=== PATIENT | male | born 1955 | race Hispanic/Latino ===

== ENCOUNTER 2018-01-11 14:19 | Emergency (ER) | payer MEDICAID ==
[2018-01-11 15:29] LABS: BASO % 0.2 % (0.0-1.0); EOS # 0.1 10^3/uL (0.0-0.50); EOS % 1.4 % (0.0-3.0); HEMATOCRIT 38.5 % (42.0-52.0); HEMOGLOBIN 12.6 g/dl (13.5-17.5); IMMATURE GRANULOCYTE % 0.5 % (0-3.0); LYMPH # 2.1 10^3/uL (1.5-4.5); LYMPH % 24.4 % (24.0-44.0); MEAN CORPUSCULAR HEMOGLOBIN 29.9 pg (27.0-33.0); MEAN CORPUSCULAR HGB CONC 32.7 g/dl (32.0-36.5); MEAN CORPUSCULAR VOLUME 91.2 fl (80.0-96.0); MONO # 0.5 10^3/uL (0.0-0.8); NEUTROPHILS # 5.7 10^3/uL (1.8-7.7); NEUTROPHILS % 67.5 % (36.0-66.0); PLATELET COUNT, AUTOMATED 217 10^3/uL (150-450); RED BLOOD COUNT 4.22 10^6/uL (4.30-6.10); RED CELL DISTRIBUTION WIDTH 13.3 % (11.5-14.5); WHITE BLOOD COUNT 8.4 10^3/uL (4.0-10.0)
[2018-01-11 15:48] LABS: ALBUMIN 3.5 GM/DL (3.2-5.2); ALBUMIN/GLOBULIN RATIO 1.17 (1.00-1.93); ALKALINE PHOSPHATASE 78 U/L (45-117); ALT/SGPT 22 U/L (12-78); ANION GAP 3 MEQ/L (8-16); AST/SGOT 10 U/L (7-37); BILIRUBIN,DIRECT 0.1 MG/DL (0.0-0.2); BILIRUBIN,TOTAL 0.3 MG/DL (0.2-1.0); BLOOD UREA NITROGEN 14 MG/DL (7-18); C REACTIVE PROTEIN QUANTITATIV < 0.30 MG/DL (0.00-0.30); CALCIUM LEVEL 8.6 MG/DL (8.8-10.2); CARBON DIOXIDE LEVEL 29 MEQ/L (21-32); CHLORIDE LEVEL 111 MEQ/L (98-107); CREATININE FOR GFR 0.76 MG/DL (0.70-1.30); GLOMERULAR FILTRATION RATE > 60.0 (>49); GLUCOSE, FASTING 121 MG/DL (70-100); POTASSIUM SERUM 4.1 MEQ/L (3.5-5.1); SODIUM LEVEL 143 MEQ/L (136-145); TOTAL PROTEIN 6.5 GM/DL (6.4-8.2)
[2018-01-11 15:49] LABS: D-DIMER QUANT < 270.0 ng/ml (<500)
[2018-01-11 16:05] LABS: ERYTHROCYTE SEDIMENTATION RATE 1 mm/hr (0-20)
== END 2018-01-11 16:21 | disposition home or self-care (01) ==
LOC: M ED 14:19
DX: M19.012 Primary osteoarthritis, left shoulder (principal); I10 Essential (primary) hypertension; J44.9 Chronic obstructive pulmonary disease, unspecified; H40.9 Unspecified glaucoma; Z79.899 Other long term (current) drug therapy; Z88.8 Allergy status to other drugs, medicaments and biological substances; F17.210 Nicotine dependence, cigarettes, uncomplicated
CPT/HCPCS: 73030

== ENCOUNTER → 2018-03-08 | Outpatient (REF) | payer MEDICAID ==
[2018-03-08 13:11] LABS: AMPHETAMINES URINE REFLEX NEGATIVE (NEGATIVE); BARBITURATES URINE REFLEX NEGATIVE (NEGATIVE); BENZODIAZEPINES URINE REFLEX NEGATIVE (NEGATIVE); CANNABINOIDS URINE REFLEX NEGATIVE (NEGATIVE); COCAINE METABOLITE URINE REFLE NEGATIVE (NEGATIVE); METHADONE URINE REFLEX NEGATIVE (NEGATIVE); OPIATES URINE REFLEX NEGATIVE (NEGATIVE); PHENCYCLIDINE URINE REFLEX NEGATIVE (NEGATIVE)
== END ==
LOC: M LAB REF 12:00
DX: M50.30 Other cervical disc degeneration, unspecified cervical region (principal)
CPT/HCPCS: 80307

== ENCOUNTER → 2018-03-14 | Outpatient (REF) | payer OTHER, MEDICAID ==
[2018-03-14 12:34] LABS: BASO % 0.4 % (0.0-1.0); EOS # 0.1 10^3/uL (0.0-0.50); EOS % 1.2 % (0.0-3.0); HEMATOCRIT 40.5 % (42.0-52.0); IMMATURE GRANULOCYTE % 0.4 % (0-3.0); LYMPH # 1.7 10^3/uL (1.5-4.5); LYMPH % 20.9 % (24.0-44.0); MEAN CORPUSCULAR HEMOGLOBIN 29.4 pg (27.0-33.0); MEAN CORPUSCULAR HGB CONC 32.1 g/dl (32.0-36.5); MEAN CORPUSCULAR VOLUME 91.6 fl (80.0-96.0); MONO # 0.5 10^3/uL (0.0-0.8); MONO % 6.5 % (0.0-5.0); NEUTROPHILS # 5.7 10^3/uL (1.8-7.7); NEUTROPHILS % 70.6 % (36.0-66.0); PLATELET COUNT, AUTOMATED 234 10^3/uL (150-450); RED BLOOD COUNT 4.42 10^6/uL (4.30-6.10); RED CELL DISTRIBUTION WIDTH 12.9 % (11.5-14.5); WHITE BLOOD COUNT 8.1 10^3/uL (4.0-10.0)
[2018-03-14 13:16] LABS: ALBUMIN 3.6 GM/DL (3.2-5.2); ALBUMIN/GLOBULIN RATIO 1.29 (1.00-1.93); ALKALINE PHOSPHATASE 75 U/L (45-117); ALT/SGPT 23 U/L (12-78); ANION GAP 7 MEQ/L (8-16); AST/SGOT 13 U/L (7-37); BILIRUBIN,TOTAL 0.5 MG/DL (0.2-1.0); BLOOD UREA NITROGEN 11 MG/DL (7-18); CALCIUM LEVEL 8.6 MG/DL (8.8-10.2); CARBON DIOXIDE LEVEL 27 MEQ/L (21-32); CHLORIDE LEVEL 108 MEQ/L (98-107); CHOLESTEROL LEVEL 144 MG/DL (<200); CREATININE FOR GFR 0.78 MG/DL (0.70-1.30); FOLATE 13.8 NG/ML; GLOMERULAR FILTRATION RATE > 60.0 (>49); GLUCOSE, FASTING 87 MG/DL (70-100); HDL CHOLESTEROL 48 MG/DL (>40); IRON (FE) 86 UG/DL (65-175); LDL CHOLESTEROL 83 MG/DL (<100); NON-HDL-C 96 MG/DL; POTASSIUM SERUM 4.1 MEQ/L (3.5-5.1); SODIUM LEVEL 142 MEQ/L (136-145); THYROID STIMULATING HORMONE 0.707 uIU/ML (0.358-3.740); TOTAL PROTEIN 6.4 GM/DL (6.4-8.2); TRIGLYCERIDES LEVEL 66 MG/DL (<150)
== END ==
LOC: M LAB REF 12:16
DX: Z00.00 Encounter for general adult medical examination without abnormal findings (principal); D64.9 Anemia, unspecified

== ENCOUNTER → 2018-03-30 | Outpatient (CLI) | payer OTHER ==
[~2018-03-30] MED LIST: PROHANCE 279.3MG/ML 15ML VIAL (A9576) As Ordered
== END ==
LOC: M RAD 09:43
DX: M50.21 Other cervical disc displacement, high cervical region (principal); M50.221 Other cervical disc displacement at C4-C5 level; M50.222 Other cervical disc displacement at C5-C6 level; M50.223 Other cervical disc displacement at C6-C7 level; M53.88 Other specified dorsopathies, sacral and sacrococcygeal region; M47.22 Other spondylosis with radiculopathy, cervical region
CPT/HCPCS: A9576

== ENCOUNTER → 2018-05-18 | Outpatient (CLI) | payer OTHER ==
[~2018-05-18] MED LIST changes: +AMLO5TAB6 PO; +DICL75TA PO; +EYE0.0259 OP; +FLUO25OPD OU; +FLUT22IN INH; +LISI10TA2 PO; -PROHANCE 279.3MG/ML 15ML VIAL (A9576) As Ordered; +SPIR1CAP INH; +TRAM50TA2 PO; +VENTAER INH; +VITA-122 PO; +VITA1TAB27 PO; +[UNRECOGNIZED DRUG - REMARK]
[2018-05-18 14:38] LABS: HEMATOCRIT 39.7 % (42.0-52.0); MEAN CORPUSCULAR HEMOGLOBIN 29.8 pg (27.0-33.0); MEAN CORPUSCULAR HGB CONC 32.7 g/dl (32.0-36.5); MEAN CORPUSCULAR VOLUME 91.1 fl (80.0-96.0); PLATELET COUNT, AUTOMATED 223 10^3/uL (150-450); RED BLOOD COUNT 4.36 10^6/uL (4.30-6.10); WHITE BLOOD COUNT 11.7 10^3/uL (4.0-10.0)
[2018-05-18 14:49] LABS: INR 1.09; PROTHROMBIN TIME 14.3 SECONDS (12.1-14.4)
[2018-05-18 15:07] LABS: ALBUMIN 3.7 GM/DL (3.2-5.2); ALT/SGPT 24 U/L (12-78); BILIRUBIN,TOTAL 0.4 MG/DL (0.2-1.0); BLOOD UREA NITROGEN 12 MG/DL (7-18); CARBON DIOXIDE LEVEL 28 MEQ/L (21-32); CHLORIDE LEVEL 107 MEQ/L (98-107); CREATININE FOR GFR 0.73 MG/DL (0.70-1.30); GLOMERULAR FILTRATION RATE > 60.0 (>49); GLUCOSE, FASTING 82 MG/DL (70-100); POTASSIUM SERUM 4.6 MEQ/L (3.5-5.1); SODIUM LEVEL 141 MEQ/L (136-145); TOTAL PROTEIN 6.5 GM/DL (6.4-8.2)
[2018-05-18 15:22] LABS: ERYTHROCYTE SEDIMENTATION RATE 6 mm/hr (0-20)
--- NOTE | 2018-05-18 16:35 | REP ---
Chest two views HISTORY: Preop Comparison: None The lungs are hyperinflated. The lungs are clear. The heart is normal in size. The pulmonary vasculature is normal in appearance. Degenerative change is present in the thoracic spine. IMPRESSION: No acute disease. Electronically Signed by Carlin Lemons MD 05/18/2018 04:26 P
--- NOTE | 2018-05-18 21:43 | ECGEPIP ---
Stationary ECG Study [facility] Test Date: 2018-05-18 Pat Name: NASRA PINA Department: Room: - Gender: M Partition Notcher: : 1955 Requested By: Theron Hobbs Order Number: [id number] Reading MD: Ji Ruffin Measurements Intervals [place] Rate: 68 P: 73 HI: 150 QRS: 71 QRSD: 87 T: 56 QT: 360 QTc: 384 Interpretive Statements SINUS RHYTHM Early repolarization. No prior ECG available for comparison at the time of interpretation. Electronically Signed On 05-18-2018 21:43:37 EST by Ji Ruffin
== END ==
LOC: M LAB 13:34
PROVIDERS: ATTEND Family Medicine Addiction Medicine
DX: Z01.818 Encounter for other preprocedural examination (principal); M17.11 Unilateral primary osteoarthritis, right knee

== ENCOUNTER → 2018-06-01 | Outpatient (CLI) | payer OTHER ==
[2018-06-01 09:58] LABS: HEMOGLOBIN 12.6 g/dl (13.5-17.5); MEAN CORPUSCULAR HGB CONC 32.3 g/dl (32.0-36.5); MEAN CORPUSCULAR VOLUME 89.9 fl (80.0-96.0); PLATELET COUNT, AUTOMATED 221 10^3/uL (150-450); RED BLOOD COUNT 4.34 10^6/uL (4.30-6.10); WHITE BLOOD COUNT 11.8 10^3/uL (4.0-10.0)
[2018-06-01 10:07] LABS: INR 1.18; PROTHROMBIN TIME 15.1 SECONDS (12.1-14.4)
[2018-06-01 10:29] LABS: ERYTHROCYTE SEDIMENTATION RATE 3 mm/hr (0-20)
[2018-06-01 10:32] LABS: ALBUMIN 3.5 GM/DL (3.2-5.2); ALT/SGPT 26 U/L (12-78); BILIRUBIN,TOTAL 0.5 MG/DL (0.2-1.0); BLOOD UREA NITROGEN 14 MG/DL (7-18); CALCIUM LEVEL 8.8 MG/DL (8.8-10.2); CARBON DIOXIDE LEVEL 28 MEQ/L (21-32); CHLORIDE LEVEL 107 MEQ/L (98-107); CREATININE FOR GFR 0.78 MG/DL (0.70-1.30); GLOMERULAR FILTRATION RATE > 60.0 (>49); GLUCOSE, FASTING 86 MG/DL (70-100); POTASSIUM SERUM 4.1 MEQ/L (3.5-5.1); SODIUM LEVEL 143 MEQ/L (136-145); TOTAL PROTEIN 6.5 GM/DL (6.4-8.2)
== END ==
LOC: M LAB 09:24
PROVIDERS: ATTEND Orthopaedic Surgery
DX: Z01.818 Encounter for other preprocedural examination (principal); M17.11 Unilateral primary osteoarthritis, right knee

== ENCOUNTER → 2018-06-07 | Outpatient (CLI) | payer OTHER ==
--- NOTE | 2018-06-12 10:14 | SLEEPHOME ---
DATE OF PROCEDURE: 06/07/2018 ORDERED BY: Rosario Reyes. Diagnostic home sleep testing was performed due to concern for the obstructive sleep apnea syndrome in this patient with a history of snoring and nonrestorative sleep. For testing, a nocturnal T3 respiratory monitoring device was used. Continuous record was made of pulse, oxygen saturation, airflow, chest and abdominal strain, and body position. 9 hours and 59 minutes of data were reviewed. Of these, 6 hours and 17 minutes were marked as time in bed. During the interval marked time in bed, there were 149 respiratory events identified of 10 seconds in duration or greater for respiratory event index of 23.7. The events primarily obstructive. Baseline pulse rate 64 beats per minute. Pulse rate ranged from 44-96. Saturation at baseline were 97%. Saturations fell as low as 59%. Testing was performed in both the supine and non-supine positions. IMPRESSION: Abnormal home sleep testing with repetitive respiratory events and oxygen desaturation to 59% with a respiratory event index of 23.7 is consistent with the obstructive sleep apnea syndrome. RECOMMENDATIONS: The patient will be encouraged to undergo formal sleep evaluation and in laboratory pressure titration.
== END ==
LOC: M SLEEP HO 10:27
PROVIDERS: ATTEND Nurse Practitioner Family
DX: G47.30 Sleep apnea, unspecified (principal); R06.83 Snoring

== ENCOUNTER 2018-08-07 10:08 | Inpatient (IN) | payer OTHER ==
[~2018-08-07] VITALS: Ht 172.7 cm; Wt 63.6 kg
[2018-08-07] MEDS: LISINOPRIL 10 MG TAB PO SCH (09:00)
[~2018-08-07 10:08] MED LIST changes: +ACETAMINOPHEN 500 MG TAB PO ONE; +ACYC400T PO; +ARNU1INH3 INH; +BREO1INH INH; +COMBAER6 INH; +DORZ2SOL5 OP; -EYE0.0259 OP; +EYE0.0259 OU; +FLON1SPR; +FLUO25OPD OS; -FLUO25OPD OU; +FLUTISP; +LR 1,000 ML IV ONE; +RANI1SYP PO; +TIMO25OPD OU; +XALA0.007 OU; +[UNRECOGNIZED DRUG - CODE] OU; +[UNRECOGNIZED DRUG - OTHER] OU
[2018-08-07] MEDS ORDERED: TRANEXAMIC ACID 100 MG/ML 10ML VIAL As Ordered ONE (11:10)
[2018-08-07] MEDS ORDERED: BUPIVACAINE HCL 0.25% 30 ML VIAL As Ordered ONE (11:11)
[2018-08-07] MEDS ORDERED: EPINEPHrine INJ 1 MG/ML 1ML AMP As Ordered ONE (11:11)
[2018-08-07] MEDS ORDERED: ceFAZolin 1GM INJ (J0690 PER 500MG) As Ordered ONE (11:11)
[2018-08-07] MEDS ORDERED: BUPIVACAINE LIPOSOME/PF 1.3% 20ML VIAL (13.3MG/ML)(EXPAREL)(C9290 PER1MG) As Ordered ONE (11:11)
[2018-08-07] MEDS ORDERED: MIDAZOLAM INJ 2 MG/2 ML VIAL (J2250) As Ordered ONE ×2 (12:05→13:32)
[2018-08-07] MEDS ORDERED: fentaNYL 100 MCG/2 ML INJECTION (J3010) As Ordered ONE ×2 (12:05→13:32)
[2018-08-07] MEDS: fentaNYL 100 MCG/2 ML INJECTION (J3010) IV SCH ×2 (12:51→12:53)
[2018-08-07] MEDS: MIDAZOLAM INJ 2 MG/2 ML VIAL (J2250) IV SCH ×2 (12:51→12:54)
[2018-08-07] MEDS ORDERED: PROPOFOL 200 MG/20 ML VIAL As Ordered ONE ×2 (13:32→14:59)
[2018-08-07] MEDS ORDERED: BUPIVACAINE/DEXTROSE 0.75% 2 ML AMP As Ordered ONE (13:32)
[2018-08-07] MEDS ORDERED: LIDOCAINE 1% MDV 20ML VIAL ONE (14:34)
[2018-08-07] MEDS ORDERED: ROPIvacaine 0.5% 30 ML INJECTION (J2795 PER 1MG) ONE (14:34)
[2018-08-07] MEDS ORDERED: dexameTHASONE 10 MG/1 ML VIAL PRES.FREE (J1100) ONE (14:34)
[2018-08-07] MEDS ORDERED: LR 1,000 ML IV SCH (15:45)
[2018-08-07] MEDS ORDERED: ONDANSETRON 4MG/2ML VIAL (J2405) IV PRN (15:45)
[2018-08-07] MEDS ORDERED: ACETAMINOPHEN TAB 650MG DOSE (2X325MG) PO PRN (15:45)
[2018-08-07] MEDS ORDERED: fentaNYL 100 MCG/2 ML INJECTION (J3010) IV PRN (15:45)
[2018-08-07] MEDS: LR 1,000 ML IV SCH (15:45)
[2018-08-07] MEDS ORDERED: PERCOCET 5MG/325MG TAB PO PRN (15:45)
[2018-08-07] MEDS ORDERED: FLEET ENEMA PR PRN (15:45)
--- NOTE | 2018-08-07 15:57 | REP ---
Clinical: Status post knee replacement. Technique AP and cross-table lateral views. Findings: The patient is status post right knee replacement with normal positioning and appearance to the femoral and tibial components. Overlying postsurgical changes appreciated. Impression: Status post right knee replacement. Electronically Signed by Adrian Red MD 08/07/2018 03:48 P
[2018-08-07] MEDS ORDERED: HYDROMORPHONE HCL 0.5 MG/ 0.5 ML SYRINGE (J1170 PER 1) IV PRN (16:00)
[2018-08-07 16:45] VITALS: BP 159/93
[2018-08-07 17:15] VITALS: BP 144/72
[2018-08-07 18:15] VITALS: BP 146/84
[2018-08-07] MEDS: HYDROMORPHONE HCL 0.5 MG/ 0.5 ML SYRINGE (J1170 PER 1) IV PRN ×2 (18:35→23:36)
[2018-08-07 18:44] LABS: INR 1.16
[2018-08-07] MEDS ORDERED: traMADol 50 MG TAB PO PRN (19:00)
[2018-08-07] MEDS ORDERED: ALBUTEROL 90 MCG/ACT 8GM HFA INHALER INH PRN (19:00)
[2018-08-07 19:15] VITALS: BP 145/88
[2018-08-07] MEDS ORDERED: TIMO0.5S29 OU (19:39)
[2018-08-07] MEDS ORDERED: TRUS1SOL OU (19:39)
[2018-08-07] MEDS ORDERED: RANI150T PO (19:39)
[2018-08-07] MEDS ORDERED: PROL0.072 OS (19:39)
[2018-08-07] MEDS ORDERED: INCR1INH INH (19:41)
[2018-08-07] MEDS: FLUTICASONE HFA 220 MCG 12 GM INHALER (FLOVENT) INH SCH (20:00)
--- NOTE | 2018-08-07 20:43 | CR ---
DATE OF CONSULTATION: 08/07/2018 This is a 63-year-old male with a past medical history of hypertension, asthma, gastroesophageal reflux disease (GERD), history of chronic obstructive pulmonary disease (COPD), non-oxygen (non-O2) dependent, presents to this hospitalization for right total knee replacement secondary to osteoarthritis, successfully done today by Dr. Sun. REASON FOR MEDICAL CONSULTATION: Postoperative medical management. The patient is doing well at this time. His pain scale is 0 out of 10 and denies any abdominal pain, nausea, vomiting, chest pain, or shortness of breath. PAST MEDICAL HISTORY: Asthma. Hypertension. GERD. Non-oxygen dependent COPD. Glaucoma. Osteoarthritis. PAST SURGICAL HISTORY: Cataract removal. Hemorrhoidectomy. ALLERGIES: No known drug allergies. FAMILY HISTORY: Noncontributory. SOCIAL HISTORY: Patient still is an active smoker, smokes approximately three cigarettes a day but formerly was a fce-sxnd-c-day smoker for many years. Denies alcohol or illicit drugs. MEDICATIONS: He takes at home are as follows: - acyclovir 400 mg orally three times a day - albuterol as needed - amlodipine 5 mg orally daily - Arnuity Ellipta 200 mcg inhaled daily - cholecalciferol 50,000 units orally weekly - dorzolamide one drop to both eyes three times a day - fluorometholone one drop both eyes four times a day - fluticasone two puffs inhaled twice a day - latanoprost one drop both eyes nightly - lisinopril 10 mg orally daily - hydrochlorothiazide 12.5 mg orally daily - ranitidine 150 mg orally twice daily - Timolol one drop to both eyes daily - tiotropium one inhalation daily - tramadol 50 mg orally every 6 hours as needed REVIEW OF SYSTEMS: Negative all ten major systems except what has been mentioned in the history of the present illness. Vital Signs: Blood pressure 159/99, heart rate is 58, regular, respiratory rate 16, temperature is 97.3, oxygen (O2) saturation 100% on room air. Head is atraumatic, normocephalic. Neck supple. No jugular venous distention (JVD). Lungs are clear to auscultation. S1, S2 audible, No murmurs appreciated. Abdomen: Soft, positive bowel sounds. No pedal edema. Neurologic Examination: Patient awake, alert, oriented times three. LABORATORY: There are no labs to review. IMPRESSION: 1. Right total knee replacement. 2. Asthma. 3. Hypertension. PLAN: The patient at this time is medically stable. There is no recommendations at this time. The patient is just to continue his current preadmission medications and will continue following alongside orthopedics. CARLOS
[2018-08-07] MEDS ORDERED: IPRATROPIUM 0.5MG/ALBUTEROL 2.5MG INH SOL UD 3ML (DUONEB)(J7620) INH SCH (21:00)
[2018-08-07] MEDS: ACYCLOVIR 200 MG CAPSULE PO SCH ×2 (21:00→21:03)
[2018-08-07] MEDS: LATANOPROST 0.005% OPHTH SOLN 2.5 ML OU SCH ×2 (21:00→23:36)
[2018-08-07] MEDS: raNITIdine SYRUP 150 MG/10 ML UDC PO SCH (21:02)
[2018-08-07] MEDS: ONDANSETRON 4 MG TAB (S0181) PO PRN (21:02)
[2018-08-07] MEDS: amLODIPine 5 MG TAB PO SCH (21:03)
[2018-08-07] MEDS: hydroCHLOROthiazide 12.5 MG CAPSULE PO SCH (21:03)
[2018-08-07 22:00] VITALS: BP 160/86
[2018-08-08] MEDS: LR 1,000 ML IV SCH (04:15)
[2018-08-08] MEDS: ONDANSETRON 4 MG TAB (S0181) PO PRN ×2 (04:52→09:53)
[2018-08-08] MEDS: HYDROMORPHONE HCL 0.5 MG/ 0.5 ML SYRINGE (J1170 PER 1) IV PRN (05:07)
[2018-08-08 06:00] VITALS: BP 149/82
[2018-08-08] MEDS: ACETAMINOPHEN 500 MG TAB PO SCH ×2 (06:00→06:54)
[2018-08-08] MEDS ORDERED: traMADol 50 MG TAB PO PRN ×2 (06:15)
[2018-08-08] MEDS ORDERED: ONDANSETRON 4 MG TAB (S0181) PO PRN (06:15)
[2018-08-08] MEDS: FLUTICASONE HFA 220 MCG 12 GM INHALER (FLOVENT) INH SCH (07:45)
[2018-08-08] MEDS ORDERED: TRAM50TA2 PO (07:54)
[2018-08-08] MEDS ORDERED: XARE10TA PO (07:54)
[2018-08-08] MEDS ORDERED: ACET-683 PO (07:59)
[2018-08-08] MEDS ORDERED: TIOTROPIUM INHALER/CAPSULE (SPIRIVA) INH SCH (08:00)
[2018-08-08] MEDS ORDERED: FLOM0.4C39 PO (08:07)
[2018-08-08 08:28] LABS: HEMATOCRIT 35.6 % (42.0-52.0); HEMOGLOBIN 11.6 g/dl (13.5-17.5); MEAN CORPUSCULAR HEMOGLOBIN 29.1 pg (27.0-33.0); MEAN CORPUSCULAR HGB CONC 32.6 g/dl (32.0-36.5); MEAN CORPUSCULAR VOLUME 89.4 fl (80.0-96.0); PLATELET COUNT, AUTOMATED 187 10^3/uL (150-450); RED BLOOD COUNT 3.98 10^6/uL (4.30-6.10)
[2018-08-08 08:58] LABS: BLOOD UREA NITROGEN 11 MG/DL (7-18); CALCIUM LEVEL 8.7 MG/DL (8.8-10.2); CARBON DIOXIDE LEVEL 26 MEQ/L (21-32); CHLORIDE LEVEL 102 MEQ/L (98-107); GLOMERULAR FILTRATION RATE > 60.0 (>49); GLUCOSE, FASTING 150 MG/DL (70-100); POTASSIUM SERUM 3.9 MEQ/L (3.5-5.1); SODIUM LEVEL 135 MEQ/L (136-145)
[2018-08-08] MEDS ORDERED: TIMOLOL MALEATE 0.5% OPHTH SOLN 5 ML OU SCH (09:00)
[2018-08-08] MEDS ORDERED: MIRALAX *UNIT DOSE* 17GM PACKET PO SCH (09:00)
[2018-08-08] MEDS ORDERED: FLUTICASONE PROP 0.05% NASAL SPRAY 16 GM (FLONASE) SCH (09:00)
[2018-08-08] MEDS ORDERED: TAMSULOSIN 0.4 MG CAP PO ONE (09:00)
[2018-08-08] MEDS ORDERED: MOM 30ML SUSPENSION UDC PO SCH (09:00)
[2018-08-08] MEDS: hydroCHLOROthiazide 12.5 MG CAPSULE PO SCH (09:36)
[2018-08-08 09:38] VITALS: BP 153/75
[2018-08-08] MEDS: raNITIdine SYRUP 150 MG/10 ML UDC PO SCH (09:38)
[2018-08-08] MEDS: amLODIPine 5 MG TAB PO SCH (09:38)
[2018-08-08] MEDS: ACYCLOVIR 200 MG CAPSULE PO SCH (09:40)
[2018-08-08] MEDS: LISINOPRIL 10 MG TAB PO SCH (09:40)
--- NOTE | 2018-08-08 10:24 | RO ---
DATE OF PROCEDURE: 08/07/2018 PREPROCEDURE DIAGNOSIS: Right knee degenerative arthritis. POSTPROCEDURE DIAGNOSIS: Right knee degenerative arthritis. PROCEDURE: Right total knee arthroplasty using a Size 6 cruciate retaining femoral component, size 7 tibial tray, with a 5 mm rotating platform polyethylene insert, and a 38 mm polyethylene button. All components were cemented. Prosthesis made by [employer]. It was an ATTUNE knee. SURGEON: Dr. Melina Sun DATABASE MARKETING MANAGER: Mr. Kecia Evans ANESTHESIA: Spinal with right femoral nerve block. COMPLICATIONS: None. ESTIMATED BLOOD LOSS: 20 mL. SPECIMEN: Joint surface. DESCRIPTION OF PROCEDURE: After antibiotics were given intravenously preoperatively and a successful right femoral nerve block and then spinal anesthetic was induced, a tourniquet was placed on the right upper thigh and not inflated. The right lower extremity was carefully prepped and draped in the usual sterile fashion, elevated, and after an appropriate time out the tourniquet inflated to 250 mmHg. A longitudinal incision was then made for a medial parapatellar approach to the knee. Bovie cautery was used to coagulate crossing vessels. Then, a medial parapatellar arthrotomy performed. Subperiosteal dissection around the proximal medial and proximal lateral tibial plateaus performed. The patella was everted. The anterior cruciate ligament (ACL) debrided and the knee flexed. A starter reamer was placed down the center of the femoral canal, followed by the intramedullary galilea and the distal femoral cutting jig set at 5 degrees valgus angled cut for a right knee at 9 mm resection level. The block was pinned into position. Distal femoral cut performed. AP sizing jig measured for a size 7, or a little shy of that, but I pinned it at 7 with 3 degrees of external rotation and the 4-in-1 block applied. Anterior, posterior, and chamfer cuts performed. We then placed the notch jig and performed the notch on the femur at the trochlea. Then exposed the proximal tibia and used the extramedullary alignment guide to estimate being parallel to the mechanical axis of the tibia, referencing off the medial tibial condyle at 4 mm resection level. The block was pinned into position. Secondary check of the extramedullary galilea confirmed that we appeared to be parallel. A proximal tibial osteotomy was thus performed. The lamina registrar museum was placed medially and we performed a completion lateral meniscectomy and debridement of the posterior lateral osteophytes. We placed the lamina registrar museum laterally and performed a completion medial meniscectomy and debridement of posterior medial osteophytes. Spacer blocks were then trialed. The 6 was quite snug, both in flexion and in extension. It was actually very snug. Thus, given the symmetry and tightness between flexion and extension, I though it best at this point to resect more tibia. I placed the block and resected an additional 4 mm. Once it had all been cleaned away, the 6 was retried and it did fit. However, there was still some tightness in flexion, but we went ahead and trialed the tibial tray for a size 7 and pinned it in position, followed by the reamer and broach. Then, we trialed the size 7 femur and brought the knee into extension. He was quite snug in flexion, very stable in extension, and actually could even be down sized, so I did trial with the 5 and it was still quite snug at terminus of flexion, but it was relatively stable in extension and I thought therefore down sizing the femur would help us with the flexion tightness. Thus, we reapplied the 4-in-1 block using the batwing and then performed the posterior cuts and the posterior chamfer cuts. There were air balls on the anterior chamfer and the anterior cuts. Thus, at this point, we trialed a 6 femur, with the 5 tibial tray and thus this improved his flexion tightness significantly. I did release the posterior cruciate ligament (PCL) just a little bit with the Bovie cautery and the small avery elevator. I brought the knee out in full extension, everted the patella and performed a patellar osteotomy and sized for a 38 button. The lug holes were drilled, the trial placed and the patellofemoral tracking was anatomic. Thus, at this point, I drilled the lug holes for the femur and removed all the trial components. I placed Exparel in the subperiosteal tissues around the distal femur and the proximal tibia as Mr. Ward Evans mixed the cement on the back table. I prepared the bony surfaces for cementing with a copious amount of pulsatile lavage irrigant solution. Mr. Evans was also critical to the success of this difficult surgery by helping to apply appropriate soft tissue retraction, helping to manipulate the knee as needed, helping to prepare the bone cement, and helped to close the wound, amongst many other tasks. Once all the bony surfaces were thoroughly cleansed and then dried we cemented the tibial tray, removed excess cement, placed the polyethylene, then cemented the femoral component, removed excess cement, brought the knee into full extension, then cemented the patellar button, removed excess cement, and held it with a clamp with the knee in extension until the cement had hardened. As we were awaiting this, we copiously pulsatile lavage irrigated out the knee joint and then placed tranexamic acid. We then closed the apex of the arthrostomy with two #1 PDS sutures. The medial parapatellar area was closed with #1 PDS suture and then the #1 double armed Stratafix used to close the capsule. Then, at this point, we released the tourniquet, copiously irrigated once again, and closed the deep subdermal tissues with interrupted #2-0 PDS suture and the skin was closed with serjio and covered by an Optifoam sterile bulky dressing. He was then transferred to the recovery room in stable condition. There were no intraoperative complications.
[2018-08-08] MEDS ORDERED: RIVAROXABAN 10 MG TAB (XARELTO) PO SCH (18:00)
--- NOTE | 2018-08-08 20:32 | IPN ---
DATE: 08/08/2018 Patient seen and examined. Status post right total knee arthroplasty by orthopedics. Currently reported pain tolerable. Able to ambulate with walker in no acute distress. This morning patient does have to be straight catheterized because of urinary retention. Currently monitoring urine output. Denies any chest pain, pressure, or discomfort. Denies any shortness of breath. VITAL SIGNS: Temperature 97.8, pulse 70, respirations 19, blood pressure 163/75, pulse oximetry 100% on room air. LABORATORY DATA: WBC 17, hemoglobin and hematocrit 11.6/35.6, platelets 187. Chemistry: Sodium 135, potassium 3.9, chloride 102, bicarbonate 26, BUN 11, creatinine 1. PHYSICAL EXAMINATION: GENERAL: Patient alert. Comfortable in no acute distress. HEENT: Normocephalic, atraumatic. PULMONARY: Bilaterally clear. CARDIAC: Regular, S1, S2. ABDOMEN: Soft, nontender. Positive bowel sounds. EXTREMITIES: No edema, bilateral lower extremities. Dressing clean, dry, and intact. ASSESSMENT AND PLAN: This is a 63-year-old male patient with underlying medical history of asthma, hypertension, gastroesophageal reflux disease (GERD), chronic obstructive pulmonary disease (COPD), non-oxygen dependent, glaucoma, osteoarthritis, admitted under orthopedics for elective right total knee arthroplasty, status post surgery yesterday. Currently patient is able to ambulate. 1. Osteoarthritis with elective right total knee arthroplasty. Weightbearing status, pain regimen, deep vein thrombosis (DVT) prophylaxis, bowel regimen as per orthopedics. Patient likely will be discharged today. Xarelto as per orthopedics for DVT prophylaxis. 2. Urinary retention. Flomax has been added to patient's discharge regimen, and one dose of Flomax has been given in the hospital. Continue to monitor. Patient should not be discharged without able to void. 3. History of COPD. Continue current medication. 4. Hypertension. Continue Norvasc, lisinopril, hydrochlorothiazide combination. 5. Glaucoma. Continue home medication. 6. GERD. Continue current medication. 7. DVT prophylaxis. Patient on Xarelto. DISPOSITION: As per orthopedics. Likely discharge later today.
[2018-08-09] MEDS ORDERED: TAMSULOSIN 0.4 MG CAP PO SCH (21:00)
== END 2018-08-08 13:20 | disposition home or self-care (01) | DRG 302 ==
LOC: M OR 10:08 → M MS5PR 16:20
PROVIDERS: ADMIT Orthopaedic Surgery; ATTEND Orthopaedic Surgery
PROC: 0SRC0J9 Replacement of Right Knee Joint with Synthetic Substitute, Cemented, Open Approach (ICD-10-PCS; principal; 2018-08-07 13:15)
DX: M17.11 Unilateral primary osteoarthritis, right knee (principal); I10 Essential (primary) hypertension; J45.909 Unspecified asthma, uncomplicated; K21.9 Gastro-esophageal reflux disease without esophagitis; J44.9 Chronic obstructive pulmonary disease, unspecified; H40.9 Unspecified glaucoma; F17.210 Nicotine dependence, cigarettes, uncomplicated; Z79.899 Other long term (current) drug therapy

== ENCOUNTER 2018-08-23 20:38 | Emergency (ER) | payer MEDICAID, OTHER ==
[~2018-08-23] VITALS: Ht 172.7 cm; Wt 65.9 kg
[~2018-08-23 20:38] MED LIST changes: +ACET-683 PO; -ACETAMINOPHEN 500 MG TAB PO ONE; +FLOM0.4C39 PO; +INCR1INH INH; -LR 1,000 ML IV ONE; +PROL0.072 OS; +RANI150T PO; +TIMO0.2525 OU; +TIMO0.5S29 OU; -TIMO25OPD OU; +TRUS1SOL OU; +XARE10TA PO
[2018-08-23] MEDS ORDERED: ISOVUE-370 76% 100ML VIAL (Q9967) As Ordered ONE (23:03)
[2018-08-23 23:17] LABS: BASO % 0.3 % (0.0-1.0); EOS # 0.1 10^3/uL (0.0-0.50); EOS % 1.1 % (0.0-3.0); HEMATOCRIT 29.7 % (42.0-52.0); HEMOGLOBIN 9.7 g/dl (13.5-17.5); LYMPH # 1.6 10^3/uL (1.5-4.5); LYMPH % 14.9 % (24.0-44.0); MEAN CORPUSCULAR HEMOGLOBIN 29.9 pg (27.0-33.0); MEAN CORPUSCULAR HGB CONC 32.7 g/dl (32.0-36.5); MEAN CORPUSCULAR VOLUME 91.7 fl (80.0-96.0); MONO # 0.6 10^3/uL (0.0-0.8); MONO % 5.7 % (0.0-5.0); NEUTROPHILS # 8.2 10^3/uL (1.8-7.7); NEUTROPHILS % 77.3 % (36.0-66.0); PLATELET COUNT, AUTOMATED 437 10^3/uL (150-450); RED BLOOD COUNT 3.24 10^6/uL (4.30-6.10); WHITE BLOOD COUNT 10.6 10^3/uL (4.0-10.0)
[2018-08-23 23:30] LABS: INR 1.19; PROTHROMBIN TIME 15.3 SECONDS (12.1-14.4)
[2018-08-23 23:31] LABS: PARTIAL THROMBOPLASTIN TIME 29.1 SECONDS (25.4-37.6)
[2018-08-23 23:38] LABS: ALBUMIN 3.1 GM/DL (3.2-5.2); ALT/SGPT 191 U/L (12-78); BILIRUBIN,DIRECT 0.2 MG/DL (0.0-0.2); BILIRUBIN,TOTAL 0.7 MG/DL (0.2-1.0); BLOOD UREA NITROGEN 9 MG/DL (7-18); CALCIUM LEVEL 8.7 MG/DL (8.8-10.2); CARBON DIOXIDE LEVEL 26 MEQ/L (21-32); CHLORIDE LEVEL 108 MEQ/L (98-107); GLOMERULAR FILTRATION RATE > 60.0 (>49); GLUCOSE, FASTING 93 MG/DL (70-100); LIPASE 74 U/L (73-393); POTASSIUM SERUM 3.8 MEQ/L (3.5-5.1); SODIUM LEVEL 141 MEQ/L (136-145); TOTAL PROTEIN 6.2 GM/DL (6.4-8.2)
[2018-08-24] MEDS ORDERED: MORPHINE 4 MG/ML 1ML VIAL/SYRINGE (J2270) IV ONE
[2018-08-24] MEDS ORDERED: MIRA3350 PO (01:42)
[2018-08-24 01:59] VITALS: BP 133/71
--- NOTE | 2018-08-24 07:43 | REP ---
CT of the abdomen pelvis with IV contrast, without bowel contrast for lower abdominal pain: There are no comparisons. The visualized lung torres demonstrate mild dependent atelectasis but are otherwise unremarkable. There is an hepatic cyst in the medial segment of the left lobe measuring 13 x 8 mm. The hepatic parenchyma is otherwise unremarkable. The gallbladder is mildly contracted but otherwise unremarkable. There is no biliary duct dilatation. The pancreas is unremarkable. There is no pancreatic duct dilatation. Spleen is normal size and homogeneous. The adrenals are unremarkable. The kidneys are unremarkable, no renal calculi are identified. There is no hydronephrosis. No perinephric stranding. The abdominal aorta and periaortic area are unremarkable. There is no bowel distension or obstruction. There is no diverticulosis or diverticulitis. There is abundant fecal residue throughout the entire colon. Pelvis: The visualized appendix is unremarkable. There is a Barber catheter in the bladder and the bladder is collapsed. There is circumferential bladder wall thickening measuring up to 2.0 cm. This is nonspecific and could represent inflammation, infection, neoplasm, or artifact from collapsed bladder. The prostate is enlarged and effaces the bladder base. The pelvic bowel loops are unremarkable. There is no adenopathy or ascites. Impression: Circumferential bladder wall thickening. The bladder contains a Barber catheter and is collapsed. The wall thickening is nonspecific and could be inflammation, infection, neoplasm, or artifact from collapsed bladder or combination. There is no hydronephrosis. There is no ascites. There is no adenopathy or mass otherwise. There is an hepatic cyst. The prostate is enlarged and effaces the bladder base. There is abundant fecal residue throughout the entire colon compatible with constipation. Stat interpretation is performed after hours upon completion of the study by Manjula Bedolla MD of [facility]. Electronically Signed by Silvino Cornejo MD 08/24/2018 07:34 A
== END 2018-08-24 02:00 | disposition home or self-care (01) ==
LOC: M ED 20:38
DX: N40.1 Benign prostatic hyperplasia with lower urinary tract symptoms (principal); R31.9 Hematuria, unspecified; K59.00 Constipation, unspecified; I10 Essential (primary) hypertension; M19.90 Unspecified osteoarthritis, unspecified site; R51 Headache; J44.9 Chronic obstructive pulmonary disease, unspecified; G47.33 Obstructive sleep apnea (adult) (pediatric); Z96.651 Presence of right artificial knee joint; Z98.890 Other specified postprocedural states; Z87.891 Personal history of nicotine dependence; Z88.8 Allergy status to other drugs, medicaments and biological substances; Z79.899 Other long term (current) drug therapy; Z79.01 Long term (current) use of anticoagulants
CPT/HCPCS: 51702; 74177; 80048; 80076; 81001; 83690; 85025; 85610; 85730; 96374; 99284; J2270; Q9967

== ENCOUNTER → 2018-09-13 | Outpatient (CLI) | payer MEDICAID ==
[~2018-09-13] MED LIST changes: +MIRA3350 PO
== END ==
LOC: M SMT 15:28
PROVIDERS: ATTEND Nurse Practitioner Women's Health
DX: Z12.5 Encounter for screening for malignant neoplasm of prostate (principal)

== ENCOUNTER 2018-09-17 13:20 | Outpatient (RCR) | payer MEDICAID, OTHER | END 2018-10-12 | LOC: M PT 13:20 | PROVIDERS: ATTEND Orthopaedic Surgery | DX: Z47.89 Encounter for other orthopedic aftercare (principal) ==

== ENCOUNTER → 2018-09-25 | Outpatient (CLI) | payer MEDICAID ==
[2018-09-25 09:52] LABS: BASO % 0.3 % (0.0-1.0); EOS # 0.1 10^3/uL (0.0-0.50); EOS % 1.3 % (0.0-3.0); HEMATOCRIT 34.3 % (42.0-52.0); HEMOGLOBIN 10.8 g/dl (13.5-17.5); LYMPH # 1.7 10^3/uL (1.5-4.5); LYMPH % 17.9 % (24.0-44.0); MEAN CORPUSCULAR HEMOGLOBIN 29.1 pg (27.0-33.0); MEAN CORPUSCULAR HGB CONC 31.5 g/dl (32.0-36.5); MEAN CORPUSCULAR VOLUME 92.5 fl (80.0-96.0); MONO # 0.6 10^3/uL (0.0-0.8); MONO % 6.5 % (0.0-5.0); NEUTROPHILS # 6.9 10^3/uL (1.8-7.7); NEUTROPHILS % 73.5 % (36.0-66.0); PLATELET COUNT, AUTOMATED 309 10^3/uL (150-450); RED BLOOD COUNT 3.71 10^6/uL (4.30-6.10); WHITE BLOOD COUNT 9.4 10^3/uL (4.0-10.0)
[2018-09-25 10:04] LABS: ALBUMIN 3.5 GM/DL (3.2-5.2); ALT/SGPT 44 U/L (12-78); BILIRUBIN,TOTAL 0.4 MG/DL (0.2-1.0); BLOOD UREA NITROGEN 12 MG/DL (7-18); CARBON DIOXIDE LEVEL 27 MEQ/L (21-32); CHLORIDE LEVEL 109 MEQ/L (98-107); GLOMERULAR FILTRATION RATE > 60.0 (>49); GLUCOSE, FASTING 90 MG/DL (70-100); POTASSIUM SERUM 4.3 MEQ/L (3.5-5.1); SODIUM LEVEL 140 MEQ/L (136-145); TOTAL PROTEIN 6.3 GM/DL (6.4-8.2)
[2018-09-25 11:24] LABS: ERYTHROCYTE SEDIMENTATION RATE 13 mm/hr (0-20)
== END ==
LOC: M LAB 09:05
PROVIDERS: ATTEND Physician Assistant
DX: Z47.1 Aftercare following joint replacement surgery (principal)

== ENCOUNTER → 2018-11-01 | Outpatient (CLI) | payer MEDICAID ==
[2018-11-02 14:56] LABS: PSA % FREE 23.2 % (.); PSA FREE 1.58 ng/mL; PSA TOTAL 6.8 ng/mL (0.0-4.0)
== END ==
LOC: M LAB 08:26
PROVIDERS: ATTEND Nurse Practitioner Women's Health
DX: R97.20 Elevated prostate specific antigen [PSA] (principal)

== ENCOUNTER → 2018-11-19 | Outpatient (CLI) | payer MEDICAID ==
[~2018-11-19] MED LIST changes: +VITA1CAP25 PO
--- NOTE | 2018-11-19 17:13 | REP ---
Prostate sonography: History: Elevated PSA. Sonographic findings: Trans rectal prostate sonography demonstrates unremarkable seminal vesicles. Prostate gland is heterogeneously enlarged with calcifications and cystic changes noted. Glandular dimensions are measured at 4.8 x 3.1 x 5.4 cm with a calculated glandular volume of 42.0 ml. Transrectal sonographic guidance is provided to Dr. Rodriguez who performed trans rectal ultrasound guided needle biopsy procedure . Electronically Signed by Joseluis Villagomez MD 11/19/2018 05:05 P
== END ==
LOC: M SMT PRO 14:25
PROVIDERS: ATTEND Urology
DX: R97.20 Elevated prostate specific antigen [PSA] (principal)
CPT/HCPCS: 76872; 76942; G0416

== ENCOUNTER 2018-12-11 09:39 | Day surgery (SDC) | payer MEDICAID ==
[~2018-12-11] VITALS: Ht 172.7 cm; Wt 59.4 kg
[~2018-12-11 09:39] MED LIST changes: +NS 1,000 ML IV ONE
[2018-12-11] MEDS ORDERED: PROPOFOL 200 MG/20 ML VIAL As Ordered ONE (09:44)
[2018-12-11] MEDS ORDERED: LIDOCAINE 2% INJ 100 MG/5 ML SDV (FOR ANES.) As Ordered ONE (09:45)
[2018-12-11] MEDS ORDERED: fentaNYL 100 MCG/2 ML INJECTION (J3010) As Ordered ONE (10:27)
--- NOTE | 2018-12-11 11:37 | ROOR ---
Patient Name: Alexandre Bello Procedure Date: 12/11/2018 10:30 AM Date of : 1955 Age: 63 Room: [facility] Gender: Male Note Status: Finalized Procedure: Upper GI endoscopy Indications: Iron deficiency anemia, Weight loss Providers: Aamir Self MD Referring MD: Theron KWON MD Requesting Provider: Medicines: Monitored Anesthesia Care Complications: No immediate complications. Procedure: Pre-Anesthesia Assessment: - Prior to the procedure, a History and Physical was performed, and patient medications and allergies were reviewed. The patient is competent. The risks and benefits of the procedure and the sedation options and risks were discussed with the patient. All questions were answered and informed consent was obtained. Patient identification and proposed procedure were verified by the physician, the nurse and the anesthesiologist in the procedure room. Mental Status Examination: alert and oriented. Airway Examination: normal oropharyngeal airway and neck mobility. Respiratory Examination: clear to auscultation. CV Examination: normal. Prophylactic Antibiotics: The patient does not require prophylactic antibiotics. Prior Anticoagulants: The patient has taken no previous anticoagulant or antiplatelet agents. ASA Grade Assessment: II - A patient with mild systemic disease. After reviewing the risks and benefits, the patient was deemed in satisfactory condition to undergo the procedure. The anesthesia plan was to use monitored anesthesia care (MAC). Immediately prior to administration of medications, the patient was re-assessed for adequacy to receive sedatives. The heart rate, respiratory rate, oxygen saturations, blood pressure, adequacy of pulmonary ventilation, and response to care were monitored throughout the procedure. The physical status of the patient was re-assessed after the procedure. The Endoscope was introduced through the mouth, and advanced to the second part of duodenum. The upper GI endoscopy was accomplished without difficulty. The patient tolerated the procedure well. Findings: The examined esophagus was normal. The Z-line was regular and was found 45 cm from the incisors. Scattered mild inflammation characterized by erythema and granularity was found in the gastric antrum. Biopsies were taken with a cold forceps for Helicobacter pylori testing. Verification of patient identification for the specimen was done by the physician and nurse using the patient's name, date and medical record number. Estimated blood loss was minimal. The duodenal bulb and second portion of the duodenum were normal. Biopsies for histology were taken with a cold forceps for evaluation of celiac disease. Impression: - Normal esophagus. - Z-line regular, 45 cm from the incisors. - Gastritis. Biopsied. - Normal duodenal bulb and second portion of the duodenum. Biopsied. Recommendation: - Patient has a contact number available for emergencies. The signs and symptoms of potential delayed complications were discussed with the patient. Return to normal activities tomorrow. Written discharge instructions were provided to the patient. - High fiber diet. - Continue present medications. - Await pathology results. - Telephone GI clinic for pathology results in 2 weeks. - Return to primary care physician. Aamir Self MD Aamir Self MD 12/11/2018 11:36:52 AM Electronically signed by Aamir Self MD Number of Addenda: 0 Note Initiated On: 12/11/2018 10:30 AM Estimated Blood Loss: Estimated blood loss was minimal.
--- NOTE | 2018-12-11 11:50 | ROOR ---
Patient Name: Alexandre Bello Procedure Date: 12/11/2018 10:31 AM Date of : 1955 Age: 63 Room: [facility], [facility]IN [facility] Gender: Male Note Status: Finalized Procedure: Colonoscopy Indications: Hematochezia, Constipation, Weight loss Providers: Aamir Self MD Referring MD: Theron KWON MD Requesting Provider: Medicines: Monitored Anesthesia Care Complications: No immediate complications. Procedure: Pre-Anesthesia Assessment: - Prior to the procedure, a History and Physical was performed, and patient medications and allergies were reviewed. The patient is competent. The risks and benefits of the procedure and the sedation options and risks were discussed with the patient. All questions were answered and informed consent was obtained. Patient identification and proposed procedure were verified by the physician, the nurse and the anesthesiologist in the procedure room. Mental Status Examination: alert and oriented. Airway Examination: normal oropharyngeal airway and neck mobility. Respiratory Examination: clear to auscultation. CV Examination: normal. Prophylactic Antibiotics: The patient does not require prophylactic antibiotics. Prior Anticoagulants: The patient has taken no previous anticoagulant or antiplatelet agents. ASA Grade Assessment: II - A patient with mild systemic disease. After reviewing the risks and benefits, the patient was deemed in satisfactory condition to undergo the procedure. The anesthesia plan was to use monitored anesthesia care (MAC). Immediately prior to administration of medications, the patient was re-assessed for adequacy to receive sedatives. The heart rate, respiratory rate, oxygen saturations, blood pressure, adequacy of pulmonary ventilation, and response to care were monitored throughout the procedure. The physical status of the patient was re-assessed after the procedure. The Colonoscope was introduced through the anus and advanced to the terminal ileum, with identification of the appendiceal orifice and IC valve. The colonoscopy was performed without difficulty. The patient tolerated the procedure well. The quality of the bowel preparation was good. The terminal ileum, ileocecal valve, appendiceal orifice, and rectum were photographed. Scope insertion time was 4 minutes. Scope withdrawal time was 10 minutes. The total duration of the procedure was 14 minutes. Findings: The perianal and digital rectal examinations were normal. The terminal ileum appeared normal. Two sessile polyps were found in the cecum. The polyps were 3 to 4 mm in size. These polyps were removed with a cold snare. Resection and retrieval were complete. Verification of patient identification for the specimen was done by the physician and nurse using the patient's name, date and medical record number. Estimated blood loss was minimal. Four sessile polyps were found in the transverse colon. The polyps were 5 to 10 mm in size. These polyps were removed with a cold snare. Resection and retrieval were complete. Three sessile polyps were found in the recto-sigmoid colon. The polyps were 4 to 6 mm in size. These polyps were removed with a cold snare. Resection and retrieval were complete. A few small-mouthed diverticula were found in the sigmoid colon. Non-bleeding external and internal hemorrhoids were found during retroflexion. The hemorrhoids were medium-sized. Impression: - The examined portion of the ileum was normal. - Two 3 to 4 mm polyps in the cecum, removed with a cold snare. Resected and retrieved. - Four 5 to 10 mm polyps in the transverse colon, removed with a cold snare. Resected and retrieved. - Three 4 to 6 mm polyps at the recto-sigmoid colon, removed with a cold snare. Resected and retrieved. - Diverticulosis in the sigmoid colon. - Non-bleeding external and internal hemorrhoids. Recommendation: - Patient has a contact number available for emergencies. The signs and symptoms of potential delayed complications were discussed with the patient. Return to normal activities tomorrow. Written discharge instructions were provided to the patient. - High fiber diet. - Continue present medications. - Await pathology results. - Repeat colonoscopy in 3 - 5 years for surveillance based on pathology results. - Telephone GI clinic for pathology results in 2 weeks. - Return to primary care physician. Aamir Self MD Aamir Self MD 12/11/2018 11:50:00 AM Electronically signed by Aamir Self MD Number of Addenda: 0 Note Initiated On: 12/11/2018 10:31 AM Estimated Blood Loss: Estimated blood loss was minimal.
[2018-12-11 12:10] VITALS: BP 132/75
== END 2018-12-11 12:23 | disposition home or self-care (01) ==
LOC: M OPP 09:39
PROVIDERS: ATTEND Internal Medicine Gastroenterology
DX: K92.1 Melena (principal); K59.00 Constipation, unspecified; R63.4 Abnormal weight loss; D12.0 Benign neoplasm of cecum; D12.3 Benign neoplasm of transverse colon; D12.7 Benign neoplasm of rectosigmoid junction; K57.30 Diverticulosis of large intestine without perforation or abscess without bleeding; K64.8 Other hemorrhoids; D50.9 Iron deficiency anemia, unspecified; K29.70 Gastritis, unspecified, without bleeding; J44.9 Chronic obstructive pulmonary disease, unspecified; M19.90 Unspecified osteoarthritis, unspecified site; M54.89 Other dorsalgia; I10 Essential (primary) hypertension; E78.5 Hyperlipidemia, unspecified; Z87.19 Personal history of other diseases of the digestive system; G47.30 Sleep apnea, unspecified; R06.83 Snoring; N40.1 Benign prostatic hyperplasia with lower urinary tract symptoms; R33.9 Retention of urine, unspecified; F17.210 Nicotine dependence, cigarettes, uncomplicated; Z88.8 Allergy status to other drugs, medicaments and biological substances; Z79.01 Long term (current) use of anticoagulants; Z79.899 Other long term (current) drug therapy
CPT/HCPCS: 43239; 45385; 88305; J3010

== ENCOUNTER → 2019-02-27 | Outpatient (CLI) | payer MEDICAID ==
[~2019-02-27] MED LIST changes: +EYE0.0254 OU; -EYE0.0259 OU; +LISI10TA15 PO; -LISI10TA2 PO; -NS 1,000 ML IV ONE
== END ==
LOC: M LAB 10:48
PROVIDERS: ATTEND Nurse Practitioner Family
DX: E55.9 Vitamin D deficiency, unspecified (principal)

== ENCOUNTER → 2019-03-20 | Outpatient (REF) | payer MEDICAID ==
[2019-03-20 19:50] LABS: BASO # 0.1 10^3/uL (0.0-0.2); BASO % 0.4 % (0.0-1.0); EOS # 0.2 10^3/uL (0.0-0.5); EOS % 1.9 % (0.0-3.0); HEMATOCRIT 43.6 % (42.0-52.0); HEMOGLOBIN 13.4 g/dl (13.5-17.5); LYMPH # 3.3 10^3/uL (1.5-5.0); MEAN CORPUSCULAR HEMOGLOBIN 27.1 pg (27.0-33.0); MEAN CORPUSCULAR HGB CONC 30.7 g/dl (32.0-36.5); MEAN CORPUSCULAR VOLUME 88.1 fl (80.0-96.0); MONO # 0.8 10^3/uL (0.0-0.8); MONO % 6.3 % (0.0-5.0); NEUTROPHILS # 7.8 10^3/uL (1.5-8.5); NEUTROPHILS % 63.3 % (36.0-66.0); PLATELET COUNT, AUTOMATED 293 10^3/uL (150-450); RED BLOOD COUNT 4.95 10^6/uL (4.30-6.10); WHITE BLOOD COUNT 12.3 10^3/uL (4.0-10.0)
[2019-03-20 20:05] LABS: FOLATE 11.8 NG/ML
== END ==
LOC: M LAB REF 18:51
PROVIDERS: ATTEND Nurse Practitioner Family
DX: D64.9 Anemia, unspecified (principal)

== ENCOUNTER → 2019-05-30 | Outpatient (CLI) | payer MEDICAID ==
[2019-06-02 00:09] LABS: PSA % FREE 24.7 % (.); PSA FREE 1.9 ng/mL; PSA TOTAL 7.7 ng/mL (0.0-4.0)
== END ==
LOC: M LAB 15:21
PROVIDERS: ATTEND Urology
DX: R97.20 Elevated prostate specific antigen [PSA] (principal)

== ENCOUNTER → 2019-05-30 | Outpatient (CLI) | payer MEDICAID ==
[2019-05-30 16:22] LABS: BASO % 0.3 % (0.0-1.0); EOS # 0.2 10^3/uL (0.0-0.5); EOS % 1.6 % (0.0-3.0); HEMATOCRIT 40.7 % (42.0-52.0); HEMOGLOBIN 12.9 g/dl (13.5-17.5); LYMPH # 2.3 10^3/uL (1.5-5.0); LYMPH % 24.5 % (24.0-44.0); MEAN CORPUSCULAR HEMOGLOBIN 28.9 pg (27.0-33.0); MEAN CORPUSCULAR HGB CONC 31.7 g/dl (32.0-36.5); MEAN CORPUSCULAR VOLUME 91.1 fl (80.0-96.0); MONO # 0.6 10^3/uL (0.0-0.8); MONO % 6.1 % (0.0-5.0); NEUTROPHILS # 6.2 10^3/uL (1.5-8.5); NEUTROPHILS % 66.8 % (36.0-66.0); PLATELET COUNT, AUTOMATED 251 10^3/uL (150-450); RED BLOOD COUNT 4.47 10^6/uL (4.30-6.10); WHITE BLOOD COUNT 9.4 10^3/uL (4.0-10.0)
[2019-05-30 16:51] LABS: BLOOD UREA NITROGEN 11 MG/DL (7-18); CREATININE FOR GFR 0.84 MG/DL (0.70-1.30); FERRITIN 24 NG/ML (26-388); GLOMERULAR FILTRATION RATE > 60.0 (>49); IRON (FE) 73 UG/DL (65-175); PERCENT SATURATION 18.7 % (19.7-50.0); TOTAL IRON BINDING CAPACITY 390 UG/DL (250-450)
[2019-05-30 16:54] LABS: FOLATE 14.6 NG/ML; VITAMIN B12 LEVEL 381 PG/ML
== END ==
LOC: M LAB 15:23
PROVIDERS: ATTEND Internal Medicine Gastroenterology
DX: D50.9 Iron deficiency anemia, unspecified (principal)

== ENCOUNTER → 2019-06-03 | Outpatient (REF) | payer MEDICAID | LOC: M SMT 17:09 | PROVIDERS: ATTEND Urology | DX: R97.20 Elevated prostate specific antigen [PSA] (principal) ==

== ENCOUNTER → 2020-01-07 | Outpatient (CLI) | payer MEDICAID ==
[~2020-01-07] MED LIST changes: +AMLO1TAB24 PO; -AMLO5TAB6 PO; -EYE0.0254 OU; +KETO5DRO28 OU
[2020-01-07 18:38] LABS: BLOOD UREA NITROGEN 15 MG/DL (7-18); CREATININE FOR GFR 0.91 MG/DL (0.70-1.30); GLOMERULAR FILTRATION RATE > 60.0 (>49)
== END ==
LOC: M LAB 16:41
PROVIDERS: ATTEND Physician Assistant
DX: M25.571 Pain in right ankle and joints of right foot (principal)

== ENCOUNTER → 2020-01-21 | Outpatient (CLI) | payer MEDICAID ==
[2020-01-21 10:43] LABS: BASO % 0.5 % (0.0-1.0); EOS # 0.1 10^3/uL (0.0-0.5); EOS % 1.4 % (0.0-3.0); HEMATOCRIT 43.6 % (42.0-52.0); HEMOGLOBIN 13.9 g/dl (13.5-17.5); LYMPH # 1.6 10^3/uL (1.5-5.0); LYMPH % 20.6 % (24.0-44.0); MEAN CORPUSCULAR HEMOGLOBIN 29.6 pg (27.0-33.0); MEAN CORPUSCULAR HGB CONC 31.9 g/dl (32.0-36.5); MEAN CORPUSCULAR VOLUME 92.8 fl (80.0-96.0); MONO # 0.5 10^3/uL (0.0-0.8); MONO % 6.1 % (0.0-5.0); NEUTROPHILS # 5.7 10^3/uL (1.5-8.5); NEUTROPHILS % 71.1 % (36.0-66.0); PLATELET COUNT, AUTOMATED 259 10^3/uL (150-450); WHITE BLOOD COUNT 7.9 10^3/uL (4.0-10.0)
[2020-01-21 11:08] LABS: PERCENT SATURATION 18.7 % (19.7-50.0)
== END ==
LOC: M LAB 09:32
PROVIDERS: ATTEND Internal Medicine Gastroenterology
DX: D50.9 Iron deficiency anemia, unspecified (principal)

== ENCOUNTER → 2020-01-21 | Outpatient (CLI) | payer MEDICAID | LOC: M LAB 09:36 | PROVIDERS: ATTEND Urology | DX: R97.20 Elevated prostate specific antigen [PSA] (principal) ==

== ENCOUNTER → 2020-01-31 | Outpatient (CLI) | payer MEDICAID ==
[2020-01-31 14:56] LABS: BLOOD UREA NITROGEN 10 MG/DL (7-18); CREATININE FOR GFR 0.89 MG/DL (0.70-1.30); GLOMERULAR FILTRATION RATE > 60.0 (>49)
== END ==
LOC: M LAB 13:43
PROVIDERS: ATTEND Psychiatry & Neurology Neurology
DX: I10 Essential (primary) hypertension (principal)

== ENCOUNTER 2020-03-21 09:25 | Emergency (ER) | payer MEDICAID ==
[~2020-03-21] VITALS: Ht 172.7 cm; Wt 66.0 kg
[2020-03-21 10:32] LABS: BASO % 0.2 % (0.0-1.0); EOS # 0.1 10^3/uL (0.0-0.5); HEMATOCRIT 41.9 % (42.0-52.0); HEMOGLOBIN 12.9 g/dl (13.5-17.5); LYMPH # 1.7 10^3/uL (1.5-5.0); LYMPH % 16.8 % (24.0-44.0); MEAN CORPUSCULAR HEMOGLOBIN 28.2 pg (27.0-33.0); MEAN CORPUSCULAR HGB CONC 30.8 g/dl (32.0-36.5); MEAN CORPUSCULAR VOLUME 91.7 fl (80.0-96.0); MONO # 0.5 10^3/uL (0.0-0.8); MONO % 5.3 % (0.0-5.0); NEUTROPHILS # 7.5 10^3/uL (1.5-8.5); PLATELET COUNT, AUTOMATED 252 10^3/uL (150-450); RED BLOOD COUNT 4.57 10^6/uL (4.30-6.10); WHITE BLOOD COUNT 9.9 10^3/uL (4.0-10.0)
--- NOTE | 2020-03-21 11:00 | REP ---
INDICATION: pain, recent blood draw r/o dvt. COMPARISON: None TECHNIQUE: Multiple ultrasonographic images of the deep venous structures of the left upper extremity were obtained from the brachial vein to the interrogatable portions of the subclavian vein along with color flow doppler imaging and doppler interrogation. FINDINGS: There is no evidence of abnormal echogenic material seen in any of the visualized deep venous structures of the left upper extremity. Coaptation where obtainable was achievable throughout. IMPRESSION: No ultrasonographic evidence of deep venous thrombosis involving the imageable portions of the deep venous structures of the left upper extremity. Accredited by the [employer] in Vascular Peripheral Ultrasound. <Electronically signed by Thang Batista > 03/21/20 [id number]
[2020-03-21] MEDS ORDERED: ISOVUE-370 76% 100ML VIAL As Ordered ONE ×2 (11:25→11:41)
[2020-03-21] MEDS ORDERED: NS 1,000 ML IV ONE (11:30)
--- NOTE | 2020-03-21 12:26 | REP ---
INDICATION: chest pain r/o PE. COMPARISON: Chest 05/18/2018 TECHNIQUE: CT angiogram chest performed following the intravenous administration of 100 cc of Isovue 370. Sagittal and coronal reconstruction images are performed the initial bolus involved a contrast triggering air within adequate contrast. Therefore the contrast was read loaded and patient reinjected with another scan performed.. FINDINGS: Lungs: Showed some minor apical pleuroparenchymal scarring on the left. Hyperinflation and some emphysematous changes are noted. No effusion or acute infiltrates. Mediastinum: No adenopathy. Pulmonary arteries: No evidence of pulmonary embolism. Svitlana: No adenopathy. Axilla: No adenopathy. Pleura: No effusion. Heart: Not enlarged. Thoracic aorta: No aneurysm or dissection. Upper abdominal structures: Show simple hepatic cyst in the right lobe but structures otherwise unremarkable as visualized.. Visualized osseous structures: Some degenerative changes in the spine and shoulders but no fracture, compression deformity or other acute finding.. IMPRESSION: No CT evidence of pulmonary embolism.No infiltrate seen. Some underlying COPD and emphysematous change in the upper lung zones with pleuroparenchymal scarring, mild. Nothing acute. <Electronically signed by Thang Batista > 03/21/20 0527
[2020-03-21 12:47] VITALS: BP 163/82
--- NOTE | 2020-03-21 17:04 | ECGEPIP ---
[facility] - ED Test Date: 2020-03-21 Pat Name: NASRA PINA Department: Room: - Gender: Male [employer]: : 1955 Requested By: DMITRY VARGAS PA-C. Order Number: [id number] Reading MD: Jessica Adair Measurements Intervals [place] Rate: 73 P: 65 LA: 121 QRS: 69 QRSD: 110 T: 55 QT: 352 QTc: 388 Interpretive Statements SINUS RHYTHM POSSIBLE RIGHT VENTRICULAR CONDUCTION DELAY PROBABLE EARLY REPOLARIZATION similar to prior EKG 05/18/18 Electronically Signed on 03-21-2020 17:04:07 EST by Jessica Adair
== END 2020-03-21 12:52 | disposition home or self-care (01) ==
LOC: M ED 09:25
DX: M79.602 Pain in left arm (principal); I10 Essential (primary) hypertension; J44.9 Chronic obstructive pulmonary disease, unspecified; M81.0 Age-related osteoporosis without current pathological fracture; Z79.899 Other long term (current) drug therapy; Z88.8 Allergy status to other drugs, medicaments and biological substances; F17.210 Nicotine dependence, cigarettes, uncomplicated
CPT/HCPCS: 36415; 71275; 80047; 85025; 85379; 93005; 93971; 96360; 99284; Q9967

== ENCOUNTER → 2020-05-26 | Outpatient (CLI) | payer MEDICARE, MEDICAID ==
[2020-05-27 23:07] LABS: PSA % FREE 22.7 % (.); PSA FREE 1.34 ng/mL; PSA TOTAL 5.9 ng/mL (0.0-4.0)
== END ==
LOC: M LAB 09:43
PROVIDERS: ATTEND Urology
DX: R97.20 Elevated prostate specific antigen [PSA] (principal)

== ENCOUNTER → 2020-10-06 | Outpatient (CLI) | payer MEDICARE, MEDICAID ==
[~2020-10-06] MED LIST changes: +ACYC1TAB PO; -ACYC400T PO
--- NOTE | 2020-10-06 16:12 | REPVR ---
PROCEDURE INFORMATION: Exam: CT Maxillofacial Without Contrast, Sinus Exam date and time: 10/06/2020 3:59 PM Age: 65 years old Clinical indication: Pain; Other: Sinus; Additional info: Chronic sinusitis TECHNIQUE: Imaging protocol: CT Maxillofacial without contrast. Focus on the sinuses. Axial and coronal reformatted images were created and reviewed. Radiation optimization: All CT scans at this facility use at least one of these dose optimization techniques: automated exposure control; mA and/or kV adjustment per patient size (includes targeted exams where dose is matched to clinical indication); or iterative reconstruction. COMPARISON: No relevant prior studies available. FINDINGS: Frontal sinuses: Normal. No air-fluid levels. Ethmoid air cells: Minimal ethmoid mucosal thickening. No air-fluid levels. Sphenoid sinuses: Normal. No air-fluid levels. Maxillary sinuses: Tiny right maxillary sinus polyp versus mucous retention cyst. No air-fluid levels. Ostiomeatal units are patent. Nasal cavity/Septum: Leftward nasal septal deviation. Orbital cavity: Orbits are normal. Globes are unremarkable. Bones/joints: Unremarkable. Soft tissues: Unremarkable. IMPRESSION: Minimal ethmoid mucosal thickening. Tiny right maxillary sinus polyp versus mucous retention cyst. Electronically signed by: Dung Muñoz On 10/06/2020 16:12:06 PM
== END ==
LOC: M RAD 15:49
PROVIDERS: ATTEND Family Medicine Addiction Medicine
DX: J34.2 Deviated nasal septum (principal)

== ENCOUNTER → 2021-01-21 | Outpatient (CLI) | payer MEDICARE, MEDICAID ==
[2021-01-23 02:07] LABS: PSA % FREE 15.7 % (.); PSA FREE 1.4 ng/mL; PSA TOTAL 8.9 ng/mL (0.0-4.0)
== END ==
LOC: M LAB 08:59
PROVIDERS: ATTEND Urology
DX: R97.20 Elevated prostate specific antigen [PSA] (principal)

== ENCOUNTER → 2021-01-30 | Outpatient (CLI) | payer MEDICARE, MEDICAID ==
[2021-01-30 12:07] LABS: BLOOD UREA NITROGEN 11 MG/DL (7-18); CREATININE FOR GFR 0.79 MG/DL (0.70-1.30); GLOMERULAR FILTRATION RATE > 60.0 (>49)
== END ==
LOC: M LAB 11:12
PROVIDERS: ATTEND Psychiatry & Neurology Neurology
DX: I10 Essential (primary) hypertension (principal)

== ENCOUNTER → 2021-06-03 | Outpatient (CLI) | payer MEDICARE, MEDICAID ==
[~2021-06-03] MED LIST changes: -LISI10TA15 PO; +LISI10TA24 PO
[2021-06-04 23:07] LABS: PSA % FREE 21.7 % (.); PSA FREE 1.3 ng/mL
== END ==
LOC: M LAB 11:31
PROVIDERS: ATTEND Urology
DX: R97.20 Elevated prostate specific antigen [PSA] (principal)

== ENCOUNTER → 2021-09-27 | Outpatient (CLI) | payer MEDICARE, MEDICAID ==
[2021-09-27 11:03] LABS: HEMATOCRIT 40.2 % (42.0-52.0); MEAN CORPUSCULAR HEMOGLOBIN 30.3 pg (27.0-33.0); MEAN CORPUSCULAR HGB CONC 32.3 g/dl (32.0-36.5); MEAN CORPUSCULAR VOLUME 93.7 fl (80.0-96.0); PLATELET COUNT, AUTOMATED 238 10^3/uL (150-450); RED BLOOD COUNT 4.29 10^6/uL (4.30-6.10); WHITE BLOOD COUNT 9.7 10^3/uL (4.0-10.0)
[2021-09-27 11:30] LABS: ALBUMIN 3.6 GM/DL (3.2-5.2); ALT/SGPT 24 U/L (12-78); BILIRUBIN,TOTAL 0.5 MG/DL (0.2-1.0); BLOOD UREA NITROGEN 13 MG/DL (7-18); CARBON DIOXIDE LEVEL 28 MEQ/L (21-32); CHLORIDE LEVEL 109 MEQ/L (98-107); CREATININE FOR GFR 0.81 MG/DL (0.70-1.30); ERYTHROCYTE SEDIMENTATION RATE 3 mm/hr (0-20); GLOMERULAR FILTRATION RATE > 60.0 (>49); GLUCOSE, FASTING 85 MG/DL (70-100); POTASSIUM SERUM 4.5 MEQ/L (3.5-5.1); SODIUM LEVEL 141 MEQ/L (136-145); TOTAL PROTEIN 6.3 GM/DL (6.4-8.2)
[2021-09-27 11:31] LABS: INR 1.06; PROTHROMBIN TIME 14.2 SECONDS (12.7-14.5)
== END ==
LOC: M RAD 09:39
PROVIDERS: ATTEND Orthopaedic Surgery
DX: M17.12 Unilateral primary osteoarthritis, left knee (principal); Z79.01 Long term (current) use of anticoagulants

== ENCOUNTER → 2022-02-05 | Outpatient (CLI) | payer MEDICARE, MEDICAID ==
[2022-02-05 11:58] LABS: HEMATOCRIT 38.4 % (42.0-52.0); HEMOGLOBIN 12.3 g/dl (13.5-17.5); MEAN CORPUSCULAR HEMOGLOBIN 30.1 pg (27.0-33.0); MEAN CORPUSCULAR VOLUME 94.1 fl (80.0-96.0); PLATELET COUNT, AUTOMATED 229 10^3/uL (150-450); RED BLOOD COUNT 4.08 10^6/uL (4.30-6.10); WHITE BLOOD COUNT 8.9 10^3/uL (4.0-10.0)
[2022-02-05 12:11] LABS: INR 1.01; PROTHROMBIN TIME 13.7 SECONDS (12.7-14.5)
[2022-02-05 12:35] LABS: ALBUMIN 3.4 GM/DL (3.2-5.2); ALT/SGPT 29 U/L (12-78); BILIRUBIN,TOTAL 0.4 MG/DL (0.2-1.0); BLOOD UREA NITROGEN 15 MG/DL (7-18); CALCIUM LEVEL 8.9 MG/DL (8.8-10.2); CARBON DIOXIDE LEVEL 31 MEQ/L (21-32); CHLORIDE LEVEL 109 MEQ/L (98-107); CREATININE FOR GFR 0.76 MG/DL (0.70-1.30); GLOMERULAR FILTRATION RATE > 60.0 (>49); GLUCOSE, FASTING 128 MG/DL (70-100); POTASSIUM SERUM 4.2 MEQ/L (3.5-5.1); SODIUM LEVEL 142 MEQ/L (136-145)
[2022-02-05 13:19] LABS: ERYTHROCYTE SEDIMENTATION RATE 3 mm/hr (0-20)
== END ==
LOC: M RAD 11:13
PROVIDERS: ATTEND Orthopaedic Surgery
DX: M17.12 Unilateral primary osteoarthritis, left knee (principal)

== ENCOUNTER → 2022-02-07 | Outpatient (CLI) | payer MEDICARE, MEDICAID | LOC: M RAD 12:16 → M LAB 12:16 | PROVIDERS: ATTEND Family Medicine Addiction Medicine | DX: M67.442 Ganglion, left hand (principal) ==

== ENCOUNTER → 2022-06-05 | Outpatient (CLI) | payer MEDICARE, MEDICAID | LOC: M LAB 13:18 | PROVIDERS: ATTEND Urology | DX: R97.20 Elevated prostate specific antigen [PSA] (principal) ==

== ENCOUNTER → 2022-06-13 | Outpatient (CLI) | payer MEDICARE, MEDICAID ==
[2022-06-13 17:02] LABS: BLOOD UREA NITROGEN 15 MG/DL (9-23); CREATININE FOR GFR 0.75 MG/DL (0.70-1.30); GLOMERULAR FILTRATION RATE > 60.0 (>49)
== END ==
LOC: M LAB 15:38
PROVIDERS: ATTEND Psychiatry & Neurology Neurology
DX: I10 Essential (primary) hypertension (principal)

== ENCOUNTER → 2022-06-23 | Outpatient (REF) | payer MEDICARE, MEDICAID ==
[2022-06-23 17:05] LABS: ALBUMIN 3.7 G/DL (3.2-5.2); ALKALINE PHOSPHATASE 79 U/L (46-116); ALT/SGPT 16 U/L (7.0-40); AST/SGOT 16 U/L (<34); BILIRUBIN,TOTAL 0.5 MG/DL (0.3-1.2); BLOOD UREA NITROGEN 14 MG/DL (9-23); CALCIUM LEVEL 9.2 MG/DL (8.3-10.6); CARBON DIOXIDE LEVEL 29 MMOL/L (20-31); CHLORIDE LEVEL 108 MMOL/L (98-107); CHOLESTEROL LEVEL 131 MG/DL (<200); CHOLESTEROL RISK RATIO 3.08 (<5); CREATININE FOR GFR 0.76 MG/DL (0.70-1.30); GLOMERULAR FILTRATION RATE > 60.0 (>49); GLUCOSE, FASTING 88 MG/DL (74-106); HDL CHOLESTEROL 42.4 MG/DL (>40); LDL CHOLESTEROL 77.2 MG/DL (<100); NON-HDL-C 89 MG/DL; POTASSIUM SERUM 4.9 MMOL/L (3.5-5.1); SODIUM LEVEL 141 MMOL/L (136-145); TOTAL PROTEIN 6.2 G/DL (5.7-8.2); TRIGLYCERIDES LEVEL 57 MG/DL (<150)
== END ==
LOC: M LAB REF 16:05
PROVIDERS: ATTEND Family Medicine Addiction Medicine
DX: I10 Essential (primary) hypertension (principal)

== ENCOUNTER → 2022-08-01 | Outpatient (REF) | payer MEDICARE, MEDICAID ==
[2022-08-01 13:10] LABS: BASO % 0.2 % (0.0-1.0); EOS # 0.1 10^3/uL (0.0-0.5); EOS % 1.4 % (0.0-3.0); HEMATOCRIT 39.9 % (42.0-52.0); HEMOGLOBIN 12.6 g/dl (13.5-17.5); LYMPH # 2.1 10^3/uL (1.5-5.0); LYMPH % 24.5 % (24.0-44.0); MEAN CORPUSCULAR HEMOGLOBIN 29.4 pg (27.0-33.0); MEAN CORPUSCULAR HGB CONC 31.6 g/dl (32.0-36.5); MONO # 0.5 10^3/uL (0.0-0.8); MONO % 5.9 % (2.0-8.0); NEUTROPHILS # 5.7 10^3/uL (1.5-8.5); NEUTROPHILS % 67.5 % (36.0-66.0); PLATELET COUNT, AUTOMATED 238 10^3/uL (150-450); RED BLOOD COUNT 4.29 10^6/uL (4.30-6.10); WHITE BLOOD COUNT 8.4 10^3/uL (4.0-10.0)
[2022-08-01 13:11] LABS: IRON (FE) 75 UG/DL (65-175); PERCENT SATURATION 23.1 % (19.7-50.0); TOTAL IRON BINDING CAPACITY 324 UG/DL (250-425)
[2022-08-01 13:12] LABS: ALBUMIN 3.8 G/DL (3.2-5.2); ALKALINE PHOSPHATASE 75 U/L (46-116); ALT/SGPT 18 U/L (7.0-40); AST/SGOT 11 U/L (<34); BILIRUBIN,TOTAL 0.5 MG/DL (0.3-1.2); BLOOD UREA NITROGEN 20 MG/DL (9-23); CALCIUM LEVEL 8.7 MG/DL (8.3-10.6); CARBON DIOXIDE LEVEL 29 MMOL/L (20-31); CHLORIDE LEVEL 109 MMOL/L (98-107); CHOLESTEROL LEVEL 145 MG/DL (<200); CHOLESTEROL RISK RATIO 3.18 (<5); GLOMERULAR FILTRATION RATE > 60.0 (>49); GLUCOSE, FASTING 95 MG/DL (74-106); HDL CHOLESTEROL 45.5 MG/DL (>40); LDL CHOLESTEROL 87.5 MG/DL (<100); NON-HDL-C 99.5 MG/DL; POTASSIUM SERUM 4.2 MMOL/L (3.5-5.1); SODIUM LEVEL 143 MMOL/L (136-145); TOTAL PROTEIN 6.5 G/DL (5.7-8.2); TRIGLYCERIDES LEVEL 60 MG/DL (<150)
[2022-08-01 13:14] LABS: FERRITIN 75.8 NG/ML (10.5-307.3); THYROID STIMULATING HORMONE 0.989 uIU/ML (0.55-4.78)
== END ==
LOC: M LAB REF 12:32
PROVIDERS: ATTEND Family Medicine Addiction Medicine
DX: I10 Essential (primary) hypertension (principal); D64.9 Anemia, unspecified

== ENCOUNTER 2022-10-11 10:09 | Emergency (ER) | payer MEDICARE, MEDICAID ==
[~2022-10-11] VITALS: Ht 172.7 cm; Wt 59.7 kg
[~2022-10-11 10:09] MED LIST changes: +FLUT50SP17; -FLUTISP; +TIMO0.5S20 OU; -TIMO0.5S29 OU
[2022-10-11 12:05] LABS: BASO # 0.1 10^3/uL (0.0-0.2); BASO % 0.5 % (0.0-1.0); EOS # 0.1 10^3/uL (0.0-0.5); EOS % 1.1 % (0.0-3.0); HEMATOCRIT 43.1 % (42.0-52.0); HEMOGLOBIN 14.1 g/dl (13.5-17.5); LYMPH # 2.3 10^3/uL (1.5-5.0); LYMPH % 21.5 % (24.0-44.0); MEAN CORPUSCULAR HEMOGLOBIN 30.1 pg (27.0-33.0); MEAN CORPUSCULAR HGB CONC 32.7 g/dl (32.0-36.5); MEAN CORPUSCULAR VOLUME 92.1 fl (80.0-96.0); MONO # 0.5 10^3/uL (0.0-0.8); MONO % 4.7 % (2.0-8.0); NEUTROPHILS # 7.6 10^3/uL (1.5-8.5); NEUTROPHILS % 71.3 % (36.0-66.0); PLATELET COUNT, AUTOMATED 294 10^3/uL (150-450); RED BLOOD COUNT 4.68 10^6/uL (4.30-6.10); WHITE BLOOD COUNT 10.6 10^3/uL (4.0-10.0)
[2022-10-11 12:27] LABS: CK-MB VALUE MASS < 1.0 NG/ML (<3.6)
[2022-10-11 12:30] LABS: ALKALINE PHOSPHATASE 76 U/L (46-116); ALT/SGPT 23 U/L (7.0-40); AST/SGOT 19 U/L (<34); BILIRUBIN,DIRECT 0.2 MG/DL (<0.4); BILIRUBIN,TOTAL 0.5 MG/DL (0.3-1.2); BLOOD UREA NITROGEN 13 MG/DL (9-23); CARBON DIOXIDE LEVEL 29 MMOL/L (20-31); CHLORIDE LEVEL 106 MMOL/L (98-107); GLOMERULAR FILTRATION RATE > 60.0 (>49); GLUCOSE, FASTING 94 MG/DL (74-106); POTASSIUM SERUM 4.5 MMOL/L (3.5-5.1); SODIUM LEVEL 141 MMOL/L (136-145); TOTAL PROTEIN 6.8 G/DL (5.7-8.2)
[2022-10-11 12:32] LABS: THYROID STIMULATING HORMONE 0.374 uIU/ML (0.55-4.78)
[2022-10-11 12:40] LABS: CPK CREATINE PHOSPHOKINASE 62 U/L (46-171); MB/CK RELATIVE INDEX 1.61 (< OR =4)
[2022-10-11 13:24] LABS: INR 1.04; PARTIAL THROMBOPLASTIN TIME 29.7 SECONDS (24.8-34.2); PROTHROMBIN TIME 13.8 SECONDS (12.5-14.5)
[2022-10-11 13:44] LABS: CK-MB VALUE MASS < 1.0 NG/ML (<3.6)
[2022-10-11 13:49] LABS: RSV AMPLIFICATION NEGATIVE (NEGATIVE)
[2022-10-11 13:53] LABS: CPK CREATINE PHOSPHOKINASE 58 U/L (46-171); MB/CK RELATIVE INDEX 1.72 (< OR =4)
[2022-10-11] MEDS ORDERED: MECLIZINE 25 MG TABLET PO ONE (14:00)
[2022-10-11] MEDS ORDERED: ISOVUE-370 76% 100ML VIAL As Ordered ONE (14:14)
[2022-10-11] MEDS ORDERED: NASA1SPR NARES (17:36)
[2022-10-11] MEDS ORDERED: FEXO-111 PO (17:36)
[2022-10-11 17:52] VITALS: BP 142/88
== END 2022-10-11 18:00 | disposition home or self-care (01) ==
LOC: M ED 10:09
DX: R42 Dizziness and giddiness (principal); H65.07 Acute serous otitis media, recurrent, unspecified ear; J44.9 Chronic obstructive pulmonary disease, unspecified; J45.909 Unspecified asthma, uncomplicated; I10 Essential (primary) hypertension; N40.0 Benign prostatic hyperplasia without lower urinary tract symptoms; Z88.6 Allergy status to analgesic agent; Z79.51 Long term (current) use of inhaled steroids; Z79.899 Other long term (current) drug therapy
CPT/HCPCS: 36415; 70450; 70496; 70498; 70551; 71045; 80047; 80048; 80076; 82550; 82553; 84439; 84443; 84484; 85025; 85610; 85730; 87631; 93005; 94760; 99284; Q9967

== ENCOUNTER → 2022-10-19 | Outpatient (CLI) | payer MEDICARE, MEDICAID ==
[~2022-10-19] MED LIST changes: +FEXO-111 PO; +NASA1SPR NARES
== END ==
LOC: M RAD 08:37
PROVIDERS: ATTEND Otolaryngology
DX: R91.8 Other nonspecific abnormal finding of lung field (principal); E07.89 Other specified disorders of thyroid; R42 Dizziness and giddiness; R07.0 Pain in throat

== ENCOUNTER → 2022-10-20 | Outpatient (REF) | payer MEDICARE, MEDICAID | LOC: M LAB REF 17:49 | PROVIDERS: ATTEND Surgery | DX: M79.89 Other specified soft tissue disorders (principal) ==

== ENCOUNTER → 2023-06-07 | Outpatient (CLI) | payer MEDICARE, MEDICAID ==
[~2023-06-07] MED LIST changes: -FLUT50SP17; +FLUTISP
== END ==
LOC: M LAB 08:23
PROVIDERS: ATTEND Urology
DX: R97.20 Elevated prostate specific antigen [PSA] (principal)

== ENCOUNTER → 2023-06-23 | Outpatient (REF) | payer MEDICARE, MEDICAID ==
[2023-06-23 12:07] LABS: APPEARANCE, URINE CLEAR (CLEAR); BACTERIA, URINE AUTO NEGATIVE (NEGATIVE); BILIRUBIN, URINE AUTO NEGATIVE (NEGATIVE); BLOOD, URINE BLOOD NEGATIVE (NEGATIVE); COLOR, URINE YELLOW (YELLOW); GLUCOSE, URINE (UA) AUTO NEGATIVE (NEGATIVE); KETONE, URINE AUTO NEGATIVE (NEGATIVE); LEUKOCYTE ESTERASE, URINE AUTO NEGATIVE (NEGATIVE); MUCUS, URINE SMALL (NEGATIVE); NITRITE, URINE AUTO NEGATIVE (NEGATIVE); PROTEIN, URINE AUTO NEGATIVE (NEGATIVE); RBC, URINE AUTO 0 /HPF (0-3); SPECIFIC GRAVITY URINE AUTO 1.029 (1.002-1.035); SQUAMOUS EPITHELIAL CELL UR AU 0 /HPF (0-6); WBC, URINE AUTO 0 /HPF (0-3)
== END ==
LOC: M LAB REF 11:41
PROVIDERS: ATTEND Physician Assistant Medical
DX: N39.0 Urinary tract infection, site not specified (principal)

== ENCOUNTER → 2023-06-26 | Outpatient (CLI) | payer MEDICARE, MEDICAID ==
[~2023-06-26] MED LIST changes: +PROHANCE 279.3MG/ML 15ML VIAL ONE
== END ==
LOC: M PLAIMG 09:09
PROVIDERS: ATTEND Urology
DX: R97.20 Elevated prostate specific antigen [PSA] (principal)
CPT/HCPCS: 72197; A9576

== ENCOUNTER 2023-09-10 23:55 | Emergency (ER) | payer MEDICARE, MEDICAID ==
[~2023-09-10] VITALS: Ht 172.7 cm; Wt 64.7 kg
[~2023-09-10 23:55] MED LIST changes: -PROHANCE 279.3MG/ML 15ML VIAL ONE
[2023-09-11 03:32] VITALS: BP 144/88; TEMP 97.6; O2SAT 100
== END 2023-09-11 03:36 | disposition home or self-care (01) ==
LOC: M ED 23:55
DX: R33.9 Retention of urine, unspecified (principal); Z79.899 Other long term (current) drug therapy; Z88.8 Allergy status to other drugs, medicaments and biological substances

== ENCOUNTER 2023-09-14 09:53 | Emergency (ER) | payer MEDICARE, MEDICAID ==
[~2023-09-14] VITALS: Ht 172.7 cm; Wt 64.1 kg
[2023-09-14] MEDS: LIDOCAINE 2% 5ML JELLY UROJET TOP ONE (13:40)
[2023-09-14 14:14] VITALS: BP 162/85; TEMP 97.8; O2SAT 100
== END 2023-09-14 14:38 | disposition home or self-care (01) ==
LOC: M ED 09:53
DX: N40.1 Benign prostatic hyperplasia with lower urinary tract symptoms (principal); T83.098A Other mechanical complication of other urinary catheter, initial encounter; I10 Essential (primary) hypertension; K21.9 Gastro-esophageal reflux disease without esophagitis; Z79.899 Other long term (current) drug therapy; Z88.8 Allergy status to other drugs, medicaments and biological substances

== ENCOUNTER 2023-10-25 09:24 | Emergency (ER) | payer MEDICARE, MEDICAID ==
[~2023-10-25] VITALS: Ht 172.7 cm; Wt 66.2 kg
[2023-10-25 10:23] LABS: BASO % 0.4 % (0.0-1.0); EOS # 0.1 10^3/uL (0.0-0.5); EOS % 1.1 % (0.0-3.0); HEMATOCRIT 41.4 % (42.0-52.0); HEMOGLOBIN 13.5 g/dl (13.5-17.5); LYMPH # 1.9 10^3/uL (1.5-5.0); LYMPH % 19.1 % (24.0-44.0); MEAN CORPUSCULAR HEMOGLOBIN 29.8 pg (27.0-33.0); MEAN CORPUSCULAR HGB CONC 32.6 g/dl (32.0-36.5); MEAN CORPUSCULAR VOLUME 91.4 fl (80.0-96.0); MONO # 0.6 10^3/uL (0.0-0.8); MONO % 5.5 % (2.0-8.0); NEUTROPHILS # 7.4 10^3/uL (1.5-8.5); NEUTROPHILS % 72.9 % (36.0-66.0); PLATELET COUNT, AUTOMATED 216 10^3/uL (150-450); RED BLOOD COUNT 4.53 10^6/uL (4.30-6.10); WHITE BLOOD COUNT 10.2 10^3/uL (4.0-10.0)
[2023-10-25 10:51] LABS: ALBUMIN 3.5 G/DL (3.2-5.2); ALKALINE PHOSPHATASE 78 U/L (46-116); ALT/SGPT 19 U/L (7.0-40); AST/SGOT 10 U/L (<34); BILIRUBIN,TOTAL 0.5 MG/DL (0.3-1.2); BLOOD UREA NITROGEN 13 MG/DL (9-23); CALCIUM LEVEL 9.3 MG/DL (8.3-10.6); CARBON DIOXIDE LEVEL 29 MMOL/L (20-31); CHLORIDE LEVEL 107 MMOL/L (98-107); CREATININE FOR GFR 0.75 MG/DL (0.70-1.30); GLOMERULAR FILTRATION RATE > 60.0 (>49); GLUCOSE, FASTING 84 MG/DL (74-106); POTASSIUM SERUM 4.3 MMOL/L (3.5-5.1); SODIUM LEVEL 141 MMOL/L (136-145); TOTAL PROTEIN 6.2 G/DL (5.7-8.2)
[2023-10-25 11:57] LABS: D-DIMER QUANT 0.76 ug/mL (<0.5); INR 1.06; PROTHROMBIN TIME 13.5 SECONDS (12.5-14.5)
[2023-10-25] MEDS: MORPHINE 4 MG/ML 1ML VIAL IV ONE (12:36)
[2023-10-25] MEDS: CYCLOBENZAPRINE 10MG TABLET PO ONE (12:36)
[2023-10-25] MEDS ORDERED: ISOVUE-370 76% 100ML VIAL As Ordered ONE (12:49)
[2023-10-25] MEDS ORDERED: KETO10TAB PO (13:46)
[2023-10-25 14:03] VITALS: BP 145/77; TEMP 98.6; O2SAT 100
== END 2023-10-25 14:20 | disposition home or self-care (01) ==
LOC: M ED 09:24
DX: M79.605 Pain in left leg (principal); J44.9 Chronic obstructive pulmonary disease, unspecified; Z88.8 Allergy status to other drugs, medicaments and biological substances; Z79.1 Long term (current) use of non-steroidal anti-inflammatories (NSAID); Z79.51 Long term (current) use of inhaled steroids; Z79.899 Other long term (current) drug therapy
CPT/HCPCS: 71275; 80053; 83880; 85025; 85379; 85610; 93971; 96374; 99285; Q9967

== ENCOUNTER 2023-12-28 14:33 | Inpatient (IN) | payer MEDICARE, MEDICAID ==
[~2023-12-28] VITALS: Ht 172.7 cm; Wt 63.0 kg
[~2023-12-28 14:33] MED LIST changes: -FLON1SPR; +FLON1SPR NARES; +KETO10TAB PO
[2023-12-28] MEDS ORDERED: TIZA10TA PO (14:51)
[2023-12-28] MEDS ORDERED: NORT50CA PO (14:51)
[2023-12-28] MEDS ORDERED: FINA5TAB2 PO (14:51)
[2023-12-28] MEDS ORDERED: BIMA01SOL OU (14:51)
[2023-12-28] MEDS ORDERED: GABA-1171 PO (14:51)
[2023-12-28 16:49] LABS: BASO % 0.2 % (0.0-1.0); EOS % 0.1 % (0.0-3.0); HEMATOCRIT 39.7 % (42.0-52.0); LYMPH # 1.3 10^3/uL (1.5-5.0); MEAN CORPUSCULAR HGB CONC 32.7 g/dl (32.0-36.5); MEAN CORPUSCULAR VOLUME 91.7 fl (80.0-96.0); MONO # 1.2 10^3/uL (0.0-0.8); MONO % 5.4 % (2.0-8.0); NEUTROPHILS # 18.7 10^3/uL (1.5-8.5); NEUTROPHILS % 86.9 % (36.0-66.0); PLATELET COUNT, AUTOMATED 206 10^3/uL (150-450); RED BLOOD COUNT 4.33 10^6/uL (4.30-6.10); WHITE BLOOD COUNT 21.5 10^3/uL (4.0-10.0)
[2023-12-28 17:11] LABS: BLOOD UREA NITROGEN 12 MG/DL (9-23); CALCIUM LEVEL 9.1 MG/DL (8.3-10.6); CARBON DIOXIDE LEVEL 26 MMOL/L (20-31); CHLORIDE LEVEL 104 MMOL/L (98-107); CREATININE FOR GFR 0.86 MG/DL (0.70-1.30); GLOMERULAR FILTRATION RATE > 60.0 (>49); GLUCOSE, FASTING 106 MG/DL (74-106); POTASSIUM SERUM 4.2 MMOL/L (3.5-5.1); SODIUM LEVEL 135 MMOL/L (136-145)
[2023-12-28] MEDS ORDERED: ACETAMINOPHEN 500 MG TAB PO ONE (18:15)
[2023-12-28] MEDS: NS 1,000 ML IV ONE (19:01)
[2023-12-28] MEDS: FAMOTIDINE 20MG/2ML VIAL IVP ONE (19:01)
[2023-12-28] MEDS: cefTRIAXone SOD 1 GM in D5W MINI-BAG PLUS 50 ML IV ONE (19:01)
[2023-12-28] MEDS ORDERED: MOM 30ML SUSPENSION UDC PO PRN (19:15)
[2023-12-28] MEDS ORDERED: MAALOX 30 ML SUSP *UDC PO PRN (19:15)
[2023-12-28] MEDS ORDERED: VANCOMYCIN HCL 1,000 MG, VIAL MATE ADAPTER 1 EACH in NS 250 ML IV SCH (19:45)
[2023-12-28 19:54] LABS: INR 1.49; PARTIAL THROMBOPLASTIN TIME 36.2 SECONDS (24.8-34.2); PROTHROMBIN TIME 17.6 SECONDS (12.5-14.5)
[2023-12-28 20:11] LABS: ALBUMIN 3.3 G/DL (3.2-5.2); BILIRUBIN,DIRECT 0.4 MG/DL (<0.4); MAGNESIUM LEVEL 1.7 MG/DL (1.8-2.4); TOTAL PROTEIN 6.3 G/DL (5.7-8.2)
[2023-12-28 20:17] LABS: PROCALCITONIN 0.3 ng/ml
[2023-12-28] MEDS ORDERED: DORZ2SOL20 OU (20:23)
[2023-12-28] MEDS ORDERED: PREDOPD OS (20:23)
[2023-12-28] MEDS ORDERED: CHOL12508 PO (20:23)
[2023-12-28] MEDS ORDERED: ISTA0.5S OU (20:23)
[2023-12-28] MEDS ORDERED: TAMS1CAP17 PO (20:23)
[2023-12-28] MEDS ORDERED: FEXO-63 PO (20:23)
[2023-12-28] MEDS ORDERED: ACUL0.5S OU (20:23)
[2023-12-28] MEDS ORDERED: POLY17PO18 PO (20:23)
[2023-12-28] MEDS ORDERED: ACET-683 PO (20:31)
[2023-12-28] MEDS ORDERED: HOME MED LIST COMPLETE! XX SCH (20:35)
[2023-12-28] MEDS: PIPERACILLIN/TAZOBACTAM SOD 4.5 GM in D5W MINI-BAG PLUS 50 ML IV SCH (21:51)
[2023-12-28] MEDS: DOCUSATE SODIUM 100MG CAPSULE PO SCH (21:51)
[2023-12-28] MEDS: MAGNESIUM OXIDE 400MG TAB (MAG-OX) PO ONE (21:51)
[2023-12-28] MEDS: NS 1,000 ML IV SCH (21:51)
[2023-12-28 22:15] VITALS: BP 136/69; TEMP 97.9; O2SAT 100
[2023-12-28 22:20] VITALS: O2SAT 100
[2023-12-28] MEDS: VANCOMYCIN HCL 750 MG, VIAL MATE ADAPTER 1 EACH in D5W 250 ML IV ONE ×2 (22:38→23:56)
[2023-12-28] MEDS: ACETAMINOPHEN TAB 650MG DOSE (2X325MG) PO PRN (23:57)
[2023-12-29] VITALS (8 sets, daily range): BP systolic 111–148; BP diastolic 62–92; TEMP 97.5–98.2; O2SAT 98–100
[2023-12-29 05:56] LABS: HEMATOCRIT 35.5 % (42.0-52.0); HEMOGLOBIN 11.6 g/dl (13.5-17.5); MEAN CORPUSCULAR HEMOGLOBIN 30.1 pg (27.0-33.0); MEAN CORPUSCULAR HGB CONC 32.7 g/dl (32.0-36.5); PLATELET COUNT, AUTOMATED 171 10^3/uL (150-450); RED BLOOD COUNT 3.86 10^6/uL (4.30-6.10)
[2023-12-29 06:17] LABS: ALKALINE PHOSPHATASE 65 U/L (46-116); ALT/SGPT 14 U/L (7.0-40); AST/SGOT 13 U/L (<34); BILIRUBIN,TOTAL 0.9 MG/DL (0.3-1.2); BLOOD UREA NITROGEN 8 MG/DL (9-23); CALCIUM LEVEL 8.5 MG/DL (8.3-10.6); CARBON DIOXIDE LEVEL 28 MMOL/L (20-31); CHLORIDE LEVEL 109 MMOL/L (98-107); CREATININE FOR GFR 0.87 MG/DL (0.70-1.30); GLOMERULAR FILTRATION RATE > 60.0 (>49); GLUCOSE, FASTING 108 MG/DL (74-106); MAGNESIUM LEVEL 1.9 MG/DL (1.8-2.4); POTASSIUM SERUM 3.9 MMOL/L (3.5-5.1); SODIUM LEVEL 140 MMOL/L (136-145); TOTAL PROTEIN 5.6 G/DL (5.7-8.2)
[2023-12-29] MEDS: ENOXAPARIN 40MG/0.4ML SYRINGE (J1650 PER 10MG) SC SCH (08:51)
[2023-12-29] MEDS: VANCOMYCIN HCL 1,000 MG, VIAL MATE ADAPTER 1 EACH in D5W 250 ML IV SCH (10:00)
[2023-12-29] MEDS ORDERED: **NOTE PATIENT COMMENT** MISC XX SCH (13:10)
[2023-12-29] MEDS: DORZOLAMIDE 2% OPHTH SOLN 10 ML BTL OU SCH (21:00)
[2023-12-29] MEDS ORDERED: ENTER DRUG NAME HERE (PATIENT'S OWN MED) OS SCH (21:35)
[2023-12-29] MEDS ORDERED: ALBUTEROL 90 MCG/ACT 8GM HFA INHALER INH PRN (21:35)
[2023-12-29] MEDS ORDERED: ENTER DRUG NAME HERE (PATIENT'S OWN MED) OU SCH (21:35)
[2023-12-29] MEDS ORDERED: FLUTICASONE PROP 0.05% NASAL SPRAY 16 GM (FLONASE) NARES PRN (21:35)
[2023-12-29] MEDS: prednisoLONE ACET 1% OPHTH SUSP 5ML OS SCH (23:21)
[2023-12-29] MEDS: LATANOPROST 0.005% OPHTH SOLN 2.5 ML OU SCH (23:21)
[2023-12-29] MEDS: KETOROLAC 0.5% OPHTH SOLN OU SCH (23:21)
[2023-12-30 03:55] VITALS: BP 136/83; TEMP 97.9; O2SAT 98
[2023-12-30 07:00] LABS: HEMOGLOBIN 11.5 g/dl (13.5-17.5); MEAN CORPUSCULAR HEMOGLOBIN 30.2 pg (27.0-33.0); MEAN CORPUSCULAR HGB CONC 32.9 g/dl (32.0-36.5); MEAN CORPUSCULAR VOLUME 91.9 fl (80.0-96.0); PLATELET COUNT, AUTOMATED 213 10^3/uL (150-450); RED BLOOD COUNT 3.81 10^6/uL (4.30-6.10); WHITE BLOOD COUNT 10.3 10^3/uL (4.0-10.0)
[2023-12-30 07:23] LABS: BLOOD UREA NITROGEN 5 MG/DL (9-23); CALCIUM LEVEL 8.7 MG/DL (8.3-10.6); CARBON DIOXIDE LEVEL 26 MMOL/L (20-31); CHLORIDE LEVEL 108 MMOL/L (98-107); CREATININE FOR GFR 0.85 MG/DL (0.70-1.30); GLOMERULAR FILTRATION RATE > 60.0 (>49); GLUCOSE, FASTING 103 MG/DL (74-106); MAGNESIUM LEVEL 1.7 MG/DL (1.8-2.4); POTASSIUM SERUM 3.8 MMOL/L (3.5-5.1); SODIUM LEVEL 140 MMOL/L (136-145)
[2023-12-30 08:00] VITALS: BP 130/81; TEMP 97.9; O2SAT 98
[2023-12-30] MEDS: TIMOLOL MALEATE 0.5% OPHTH SOLN 5 ML OU SCH (08:27)
[2023-12-30] MEDS ORDERED: CEPH500C PO (08:58)
[2023-12-30] MEDS ORDERED: ENTER DRUG NAME HERE (PATIENT'S OWN MED) OS SCH (09:00)
[2023-12-30] MEDS ORDERED: KETOTIFEN 0.025% OU SCH (09:00)
== END 2023-12-30 12:25 | disposition home or self-care (01) | DRG 872 ==
LOC: M ED 14:33 → M ED INP 19:11 → M MSPAV 22:11
PROVIDERS: ADMIT Preventive Medicine Undersea and Hyperbaric Medicine; ATTEND Family Medicine
DX: A41.9 Sepsis, unspecified organism (principal); N39.0 Urinary tract infection, site not specified; J44.9 Chronic obstructive pulmonary disease, unspecified; K59.00 Constipation, unspecified; B96.20 Unspecified Escherichia coli [E. coli] as the cause of diseases classified elsewhere; K64.8 Other hemorrhoids; I10 Essential (primary) hypertension; H40.9 Unspecified glaucoma; N40.1 Benign prostatic hyperplasia with lower urinary tract symptoms; M19.90 Unspecified osteoarthritis, unspecified site; R32 Unspecified urinary incontinence; R33.9 Retention of urine, unspecified; Z79.899 Other long term (current) drug therapy; Z88.6 Allergy status to analgesic agent; Z87.891 Personal history of nicotine dependence

== ENCOUNTER 2024-01-24 10:07 | Day surgery (SDC) | payer MEDICARE, MEDICAID ==
[~2024-01-24] VITALS: Ht 172.7 cm; Wt 61.5 kg
[~2024-01-24 10:07] MED LIST changes: +ACUL0.5S OU; +BIMA01SOL OU; +CEPH500C PO; +CHOL12508 PO; +DORZ2SOL20 OU; +DORZ2SOL4 OS; +FEXO-63 PO; +FINA5TAB2 PO; +FLUT15.820; +FLUT1BLS17 INH; +GABA-1171 PO; +ISTA0.5S OU; +LACT10SO3 PO; +NASA1SPR; +NORT50CA PO; +OMEP40CA4 PO; +POLY17PO18 PO; +PREDOPD OS; +PROC1CRE5 PR; +RANI15TA PO; +SENN8.6T58 PO; +STOO100C30 PO; +TAMS1CAP17 PO; +TIZA10TA PO; +VITA100093 PO; +flovent INH
[2024-01-24] MEDS ORDERED: propofoL 200 MG/20 ML VIAL As Ordered ONE (10:34)
[2024-01-24] MEDS ORDERED: LIDOCAINE 2% 100MG/5ML SDV (FOR ANES.) As Ordered ONE (10:35)
[2024-01-24] MEDS: NS 1,000 ML IV ONE (10:46)
[2024-01-24 12:07] VITALS: TEMP 97.1
[2024-01-24 12:27] VITALS: BP 127/77; O2SAT 99
== END 2024-01-24 12:42 | disposition home or self-care (01) ==
LOC: M OPP 10:07
PROVIDERS: ATTEND Surgery
DX: Z12.11 Encounter for screening for malignant neoplasm of colon (principal); Z86.010 Personal history of colon polyps; D12.6 Benign neoplasm of colon, unspecified; K64.2 Third degree hemorrhoids; G47.33 Obstructive sleep apnea (adult) (pediatric); Z99.89 Dependence on other enabling machines and devices; Z87.891 Personal history of nicotine dependence; Z79.1 Long term (current) use of non-steroidal anti-inflammatories (NSAID); Z79.51 Long term (current) use of inhaled steroids; Z79.891 Long term (current) use of opiate analgesic; Z79.899 Other long term (current) drug therapy

== ENCOUNTER → 2024-02-08 | Outpatient (CLI) | payer MEDICARE, MEDICAID ==
[2024-02-08 12:45] LABS: HEMATOCRIT 38.7 % (42.0-52.0); HEMOGLOBIN 12.4 g/dl (13.5-17.5); MEAN CORPUSCULAR HEMOGLOBIN 29.9 pg (27.0-33.0); MEAN CORPUSCULAR VOLUME 93.3 fl (80.0-96.0); PLATELET COUNT, AUTOMATED 284 10^3/uL (150-450); RED BLOOD COUNT 4.15 10^6/uL (4.30-6.10)
[2024-02-08 13:16] LABS: BLOOD UREA NITROGEN 11 MG/DL (9-23); CALCIUM LEVEL 9.8 MG/DL (8.3-10.6); CARBON DIOXIDE LEVEL 30 MMOL/L (20-31); CHLORIDE LEVEL 109 MMOL/L (98-107); CREATININE FOR GFR 0.72 MG/DL (0.70-1.30); GLOMERULAR FILTRATION RATE > 60.0 (>49); GLUCOSE, FASTING 79 MG/DL (74-106); POTASSIUM SERUM 4.4 MMOL/L (3.5-5.1); SODIUM LEVEL 142 MMOL/L (136-145)
== END ==
LOC: M RAD 10:52
PROVIDERS: ATTEND Urology
DX: Z01.818 Encounter for other preprocedural examination (principal); N40.1 Benign prostatic hyperplasia with lower urinary tract symptoms

== ENCOUNTER 2024-07-02 08:37 | Emergency (ER) | payer MEDICARE, MEDICAID ==
[~2024-07-02] VITALS: Ht 172.7 cm; Wt 62.3 kg
[2024-07-02 09:12] LABS: BASO % 0.5 % (0.0-1.0); EOS # 0.1 10^3/uL (0.0-0.5); EOS % 1.3 % (0.0-3.0); HEMATOCRIT 42.1 % (42.0-52.0); HEMOGLOBIN 13.3 g/dl (13.5-17.5); LYMPH # 1.6 10^3/uL (1.5-5.0); LYMPH % 19.1 % (24.0-44.0); MEAN CORPUSCULAR HEMOGLOBIN 28.9 pg (27.0-33.0); MEAN CORPUSCULAR HGB CONC 31.6 g/dl (32.0-36.5); MEAN CORPUSCULAR VOLUME 91.3 fl (80.0-96.0); MONO # 0.5 10^3/uL (0.0-0.8); MONO % 6.2 % (2.0-8.0); NEUTROPHILS # 6.1 10^3/uL (1.5-8.5); NEUTROPHILS % 72.3 % (36.0-66.0); PLATELET COUNT, AUTOMATED 265 10^3/uL (150-450); RED BLOOD COUNT 4.61 10^6/uL (4.30-6.10); WHITE BLOOD COUNT 8.4 10^3/uL (4.0-10.0)
[2024-07-02 09:41] LABS: LIPASE 57 U/L (12-53)
[2024-07-02 09:44] LABS: ALBUMIN 3.7 G/DL (3.2-5.2); ALKALINE PHOSPHATASE 64 U/L (40-129); ALT/SGPT 19 U/L (7.0-40); AST/SGOT 16 U/L (<34); BILIRUBIN,DIRECT 0.1 MG/DL (<0.4); BILIRUBIN,TOTAL 0.3 MG/DL (0.3-1.2); BLOOD UREA NITROGEN 13 MG/DL (9-23); CALCIUM LEVEL 9.4 MG/DL (8.3-10.6); CARBON DIOXIDE LEVEL 26 MMOL/L (20-31); CHLORIDE LEVEL 108 MMOL/L (98-107); CREATININE FOR GFR 0.78 MG/DL (0.70-1.30); GLOMERULAR FILTRATION RATE > 60.0 (>49); GLUCOSE, FASTING 100 MG/DL (74-106); POTASSIUM SERUM 4.1 MMOL/L (3.5-5.1); SODIUM LEVEL 143 MMOL/L (136-145); TOTAL PROTEIN 6.8 G/DL (5.7-8.2)
[2024-07-02] MEDS ORDERED: ISOVUE-370 76% 100ML VIAL As Ordered ONE (11:28)
[2024-07-02] MEDS: ACETAMINOPHEN 325 MG TAB PO ONE (11:31)
[2024-07-02 13:00] VITALS: BP 140/80; O2SAT 100
[2024-07-02 13:14] VITALS: TEMP 96.3
[2024-07-02] MEDS: MAGNESIUM CITRATE 300ML BTL PO ONE (13:15)
== END 2024-07-02 13:16 | disposition home or self-care (01) ==
LOC: M ED 08:37
DX: K59.00 Constipation, unspecified (principal); B34.9 Viral infection, unspecified; R00.1 Bradycardia, unspecified; I45.10 Unspecified right bundle-branch block; I10 Essential (primary) hypertension; J44.9 Chronic obstructive pulmonary disease, unspecified; Z85.46 Personal history of malignant neoplasm of prostate; Z88.6 Allergy status to analgesic agent; Z79.1 Long term (current) use of non-steroidal anti-inflammatories (NSAID); Z79.51 Long term (current) use of inhaled steroids; Z79.52 Long term (current) use of systemic steroids; Z79.899 Other long term (current) drug therapy; N40.1 Benign prostatic hyperplasia with lower urinary tract symptoms; N39.0 Urinary tract infection, site not specified; Z01.818 Encounter for other preprocedural examination
CPT/HCPCS: 36415; 74177; 80048; 80053; 82248; 83690; 85025; 85027; 87486; 87581; 87633; 87798; 93005; 99285; Q9967

== ENCOUNTER → 2024-07-02 | Outpatient (CLI) | payer MEDICARE, MEDICAID ==
[~2024-07-02] MED LIST changes: +ALBU8.5H INH; +BREO1INH3 INH; -LACT10SO3 PO; +LACT10SO94 PO
[2024-07-02 08:47] LABS: HEMATOCRIT 39.2 % (42.0-52.0); MEAN CORPUSCULAR HEMOGLOBIN 30.3 pg (27.0-33.0); MEAN CORPUSCULAR HGB CONC 33.2 g/dl (32.0-36.5); MEAN CORPUSCULAR VOLUME 91.4 fl (80.0-96.0); PLATELET COUNT, AUTOMATED 242 10^3/uL (150-450); RED BLOOD COUNT 4.29 10^6/uL (4.30-6.10); WHITE BLOOD COUNT 7.2 10^3/uL (4.0-10.0)
[2024-07-02 09:18] LABS: BLOOD UREA NITROGEN 12 MG/DL (9-23); CALCIUM LEVEL 9.3 MG/DL (8.3-10.6); CARBON DIOXIDE LEVEL 30 MMOL/L (20-31); CHLORIDE LEVEL 109 MMOL/L (98-107); GLOMERULAR FILTRATION RATE > 60.0 (>49); GLUCOSE, FASTING 100 MG/DL (74-106); POTASSIUM SERUM 4.1 MMOL/L (3.5-5.1); SODIUM LEVEL 146 MMOL/L (136-145)
== END ==
LOC: M LAB 08:11
PROVIDERS: ATTEND Urology
DX: N40.1 Benign prostatic hyperplasia with lower urinary tract symptoms (principal); Z01.818 Encounter for other preprocedural examination; N39.0 Urinary tract infection, site not specified

== ENCOUNTER 2024-07-10 10:54 | Day surgery (SDC) | payer MEDICARE, MEDICAID ==
[~2024-07-10] VITALS: Ht 172.7 cm; Wt 63.0 kg
[2024-07-10] MEDS ORDERED: NS (Normal Saline) 0.9% 1,000 ML IV SCH ×2 (11:10→16:55)
[2024-07-10] MEDS ORDERED: LIDOCAINE 2% 100MG/5ML SDV (FOR ANES.) As Ordered ONE (13:07)
[2024-07-10] MEDS ORDERED: propofoL 200 MG/20 ML VIAL As Ordered ONE (13:07)
[2024-07-10] MEDS ORDERED: ONDANSETRON 4MG 2ML VIAL As Ordered ONE (13:07)
[2024-07-10] MEDS ORDERED: MIDAZOLAM INJ 2MG/2ML VIAL As Ordered ONE (13:09)
[2024-07-10] MEDS ORDERED: fentaNYL 100 MCG/2 ML INJECTION As Ordered ONE (13:09)
[2024-07-10] MEDS: ceFAZolin SOD 2 GM in IV 1 EA IV ONE (13:38)
[2024-07-10] MEDS ORDERED: PHENYLephrine 500MCG 5ML (100MCG/ML) SYRINGE As Ordered ONE (13:42)
[2024-07-10] MEDS ORDERED: ePHEDrine SULFATE 25 MG/5 ML(5MG/ML) SYRINGE As Ordered ONE (13:42)
[2024-07-10] MEDS ORDERED: ACETAMINOPHEN 1000MG/100ML IV BAG As Ordered ONE (13:45)
[2024-07-10] MEDS ORDERED: FUROSEMIDE 100MG/10ML VIAL As Ordered ONE (16:23)
[2024-07-10] MEDS ORDERED: HYDROmorphone HCL 2MG/ML 1ML VIAL As Ordered ONE (16:38)
[2024-07-10] MEDS ORDERED: ONDANSETRON 4MG 2ML VIAL IV PRN (16:55)
[2024-07-10] MEDS ORDERED: HYDROMORPHONE HCL 0.5 MG/ 0.5 ML SYRINGE IV PRN (16:55)
[2024-07-10] MEDS ORDERED: fentaNYL 100 MCG/2 ML INJECTION IV PRN (16:55)
[2024-07-10] MEDS ORDERED: oxyCODONE 5MG TAB PO PRN (16:55)
[2024-07-10] MEDS ORDERED: BACT800T5 PO (17:04)
[2024-07-10] MEDS ORDERED: ACETAMINOPHEN 325 MG TAB PO PRN (17:10)
[2024-07-10 18:36] VITALS: BP 140/77; TEMP 97.9; O2SAT 100
== END 2024-07-10 18:43 | disposition home or self-care (01) ==
LOC: M SDC 10:54
PROVIDERS: ATTEND Urology
DX: N40.0 Benign prostatic hyperplasia without lower urinary tract symptoms (principal); R32 Unspecified urinary incontinence; I10 Essential (primary) hypertension; J44.9 Chronic obstructive pulmonary disease, unspecified; G47.30 Sleep apnea, unspecified; Z79.899 Other long term (current) drug therapy; Z79.51 Long term (current) use of inhaled steroids; Z86.718 Personal history of other venous thrombosis and embolism; Z88.6 Allergy status to analgesic agent; Z87.19 Personal history of other diseases of the digestive system
CPT/HCPCS: 52601; J0131; J0690; J1100; J1171; J1940; J2250; J2371; J2405; J3010

== ENCOUNTER → 2024-07-22 | Outpatient (REF) | payer MEDICARE ==
[~2024-07-22] MED LIST changes: +BACT800T5 PO
[2024-07-22 14:01] LABS: APPEARANCE, URINE MANUAL TURBID (CLEAR); COLOR, URINE MANUAL BROWN (YELLOW)
[2024-07-22 14:03] LABS: GLUCOSE, URINE (UA) MANUAL NEGATIVE (NEGATIVE); KETONE, URINE MANUAL OBSCURED mg/dL (NEGATIVE); PROTEIN, URINE MANUAL 3+ mg/dL (NEGATIVE)
[2024-07-22 14:04] LABS: BILIRUBIN, URINE MANUAL OBSCURED (NEGATIVE); BLOOD URINE MANUAL POSITIVE (NEGATIVE); LEUKOCYTE ESTERASE, URINE MAN POSITIVE (NEGATIVE); NITRITE, URINE MANUAL NEGATIVE (NEGATIVE); UROBILINOGEN, URINE MANUAL NORMAL (NORMAL)
[2024-07-22 14:17] LABS: HYALINE CAST, URINE NONE SEEN /lpf (0-1); RBC, URINE TNTC /hpf (0-3); SQUAMOUS EPITHELIAL CELL URINE SMALL AMOUNT /hpf (SMALL AMT); WBC, URINE TNTC /hpf (0-3)
[2024-07-22 14:27] LABS: BACTERIA, URINE NONE SEEN
== END ==
LOC: M SMT 13:11
PROVIDERS: ATTEND Nurse Practitioner Family
DX: R35.0 Frequency of micturition (principal)

== ENCOUNTER → 2024-08-08 | Outpatient (REF) | payer MEDICARE ==
[2024-08-08 18:05] LABS: APPEARANCE, URINE TURBID (CLEAR); BACTERIA, URINE AUTO 1+ (NEGATIVE); BILIRUBIN, URINE AUTO NEGATIVE (NEGATIVE); BLOOD, URINE BLOOD 3+ (NEGATIVE); CALCIUM OXALATE CRYSTALS MODERATE; COLOR, URINE AMBER (YELLOW); GLUCOSE, URINE (UA) AUTO NEGATIVE (NEGATIVE); KETONE, URINE AUTO NEGATIVE (NEGATIVE); LEUKOCYTE ESTERASE, URINE AUTO 2+ (NEGATIVE); MUCUS, URINE LARGE (NEGATIVE); NITRITE, URINE AUTO NEGATIVE (NEGATIVE); PROTEIN, URINE AUTO 3+ mg/dL (NEGATIVE); RBC, URINE AUTO TNTC /HPF (0-3); SPECIFIC GRAVITY URINE AUTO 1.026 (1.002-1.035); SQUAMOUS EPITHELIAL CELL UR AU 8 /HPF (0-6); WBC, URINE AUTO TNTC /HPF (0-3)
== END ==
LOC: M SMT 16:57
PROVIDERS: ATTEND Physician Assistant
DX: R31.0 Gross hematuria (principal)

== ENCOUNTER → 2024-08-12 | Outpatient (CLI) | payer MEDICARE, MEDICAID ==
[2024-08-12 13:41] LABS: BASO % 0.2 % (0.0-1.0); EOS # 0.2 10^3/uL (0.0-0.5); EOS % 1.7 % (0.0-3.0); HEMATOCRIT 36.2 % (42.0-52.0); HEMOGLOBIN 11.5 g/dl (13.5-17.5); LYMPH # 1.7 10^3/uL (1.5-5.0); LYMPH % 19.7 % (24.0-44.0); MEAN CORPUSCULAR HEMOGLOBIN 29.7 pg (27.0-33.0); MEAN CORPUSCULAR HGB CONC 31.8 g/dl (32.0-36.5); MEAN CORPUSCULAR VOLUME 93.5 fl (80.0-96.0); MONO # 0.5 10^3/uL (0.0-0.8); MONO % 6.2 % (2.0-8.0); NEUTROPHILS # 6.2 10^3/uL (1.5-8.5); NEUTROPHILS % 71.5 % (36.0-66.0); PLATELET COUNT, AUTOMATED 249 10^3/uL (150-450); RED BLOOD COUNT 3.87 10^6/uL (4.30-6.10); WHITE BLOOD COUNT 8.7 10^3/uL (4.0-10.0)
== END ==
LOC: M LAB 12:57
PROVIDERS: ATTEND Physician Assistant
DX: R31.0 Gross hematuria (principal)

== ENCOUNTER → 2024-08-29 | Outpatient (REF) | payer MEDICARE, MEDICAID ==
[2024-08-29 16:41] LABS: APPEARANCE, URINE HAZY (CLEAR); BACTERIA, URINE AUTO NEGATIVE (NEGATIVE); BILIRUBIN, URINE AUTO NEGATIVE (NEGATIVE); BLOOD, URINE BLOOD 2+ (NEGATIVE); COLOR, URINE YELLOW (YELLOW); GLUCOSE, URINE (UA) AUTO NEGATIVE (NEGATIVE); KETONE, URINE AUTO NEGATIVE (NEGATIVE); LEUKOCYTE ESTERASE, URINE AUTO 3+ (NEGATIVE); MUCUS, URINE SMALL (NEGATIVE); NITRITE, URINE AUTO NEGATIVE (NEGATIVE); PROTEIN, URINE AUTO 2+ mg/dL (NEGATIVE); RBC, URINE AUTO 29 /HPF (0-3); SPECIFIC GRAVITY URINE AUTO 1.015 (1.002-1.035); SQUAMOUS EPITHELIAL CELL UR AU 0 /HPF (0-6); UROBILINOGEN, URINE AUTO 0.2 mg/dL (0.0-2.0); WBC, URINE AUTO 169 /HPF (0-3)
== END ==
LOC: M SMT 14:59
PROVIDERS: ATTEND Physician Assistant
DX: R30.0 Dysuria (principal)

== ENCOUNTER → 2024-09-16 | Outpatient (REF) | payer MEDICARE, MEDICAID ==
[~2024-09-16] MED LIST changes: -FLOM0.4C39 PO; +TAMS-18 PO
== END ==
LOC: M SMT 16:48
PROVIDERS: ATTEND Urology
DX: R31.0 Gross hematuria (principal)

== ENCOUNTER 2025-01-06 09:07 | Emergency (ER) | payer MEDICARE, MEDICAID ==
[~2025-01-06] VITALS: Ht 172.7 cm; Wt 63.2 kg
[~2025-01-06 09:07] MED LIST changes: +ACYC-438 PO; -ACYC1TAB PO
[2025-01-06 09:11] VITALS: TEMP 97.3
[2025-01-06 10:13] LABS: BASO # 0.0 10^3/uL (0.0-0.2); BASO % 0.6 % (0.0-1.0); EOS # 0.2 10^3/uL (0.0-0.5); EOS % 2.1 % (0.0-3.0); LYMPH # 1.9 10^3/uL (1.5-5.0); LYMPH % 26.8 % (24.0-44.0); MONO # 0.5 10^3/uL (0.0-0.8); MONO % 7.0 % (2.0-8.0); NEUTROPHILS # 4.5 10^3/uL (1.5-8.5); NEUTROPHILS % 63.4 % (36.0-66.0); PLATELET COUNT, AUTOMATED 283 10^3/uL (150-450)
[2025-01-06] MEDS: KETOROLAC 30 MG/ML 1 ML VIAL IV ONE (10:45)
[2025-01-06] MEDS: METHOCARBAMOL 1,000 MG/10 ML VIAL IV ONE (10:46)
[2025-01-06 10:49] LABS: CALCIUM LEVEL 8.9 MG/DL (8.3-10.6); CARBON DIOXIDE LEVEL 28 MMOL/L (20-31); CHLORIDE LEVEL 107 MMOL/L (98-107); CREATININE FOR GFR 0.85 MG/DL (0.70-1.30); GLOMERULAR FILTRATION RATE > 90.0 (>49); POTASSIUM SERUM 4.4 MMOL/L (3.5-5.1); SODIUM LEVEL 141 MMOL/L (136-145)
[2025-01-06] MEDS ORDERED: METH-1164 PO (11:44)
[2025-01-06 11:46] VITALS: O2SAT 100
[2025-01-06 11:52] VITALS: BP 143/84
== END 2025-01-06 11:59 | disposition home or self-care (01) ==
LOC: M ED 09:07
DX: G44.221 Chronic tension-type headache, intractable (principal); D64.9 Anemia, unspecified; J44.9 Chronic obstructive pulmonary disease, unspecified; I10 Essential (primary) hypertension; Z79.899 Other long term (current) drug therapy; Z88.8 Allergy status to other drugs, medicaments and biological substances
CPT/HCPCS: 70450; 80048; 85025; 96374; 96375; 99285; J1885; J2800